=== PATIENT | female | born 1945 | race Hispanic/Latino ===

== ENCOUNTER 2021-08-18 19:38 | Observation (INO) | payer OTHER ==
[2021-08-18] MEDS ORDERED: cloNIDine HCL 0.1 MG TAB ONE (20:06)
[2021-08-18] MEDS ORDERED: LABETALOL 20 MG/4ML SYRINGE IV ONE (20:53)
--- NOTE | 2021-08-18 21:18 | RAD REPORT ---
EXAM DESCRIPTION: Laverne Single View08/18/2021 8:55 pm CLINICAL HISTORY: Chest pain COMPARISON: 2013 FINDINGS: The lungs appear clear of acute infiltrate. The heart is mildly enlarged IMPRESSION: No acute abnormalities displayed
[2021-08-18 21:41] LABS: Absolute Lymphocytes (CBC) 1.6 K/uL (0.7-4.9); Hematocrit 39.4 % (36.0-45.0); Lymphocytes % 20.7 % (15.3-44.8); MPV 7.5 fL (7.6-11.3); RBC Red Blood Cell Count 4.38 M/uL (3.86-4.86)
[2021-08-18 21:42] LABS: Protime INR 1.08
[2021-08-18 22:12] LABS: ALT/SGPT 18 U/L (12-78); AST/SGOT 17 U/L (15-37); Albumin 3.8 g/dL (3.4-5.0); Alkaline Phosphatase 104 U/L (45-117); BUN Blood Urea Nitrogen 13 mg/dL (7-18); Bicarbonate 25 mmol/L (21-32); Bilirubin Direct 0.1 mg/dL (0-0.2); Bilirubin Total 0.4 mg/dL (0.2-1.0); Glucose Level 117 mg/dL (74-106); Potassium 3.7 mmol/L (3.5-5.1); Protein, Total 8.6 g/dL (6.4-8.2); Sodium Level 139 mmol/L (136-145)
[2021-08-18 22:13] LABS: Magnesium 2.2 mg/dL (1.8-2.4); NT PRO-BNP 204 pg/mL (<450); Troponin (Emerg Dept Use Only) < 0.02 ng/mL (0.0-0.045)
--- NOTE | 2021-08-19 00:47 | ER ---
Nurse's Notes [facility] Name: Erin Marsh Age: 76 yrs Sex: Female : 1945 Arrival Date: 08/18/2021 Time: 19:44 Bed 5 Private MD: Diagnosis: Severe headache. Transient ischemic attack. Severe hypertension ( Non - complaint ) Presentation: 08/18 19:57 Chief complaint: Patient states: At about 1830 pt had a 'really bad' headache and took vg1 acetaminophen 160 mg and stated felt a little better. States was talking to a friend and the friend stated pt was stuttering and suggested to take another acetaminophen. pt states took another 160 mg of acetaminophen and the stuttering went away. Denies nausea or vomiting, denies chest pain, or blurred vision. Coronavirus screen: Vaccine status: Patient reports receiving the 2nd dose of the covid vaccine. Client denies travel out of the [place] in the last 14 days. Ebola Screen: Patient negative for fever greater than or equal to 101.5 degrees Fahrenheit, and additional compatible Ebola Virus Disease symptoms. Initial Sepsis Screen: Does the patient meet any 2 criteria? No. Patient's initial sepsis screen is negative. Does the patient have a suspected source of infection?. Risk Assessment: Do you want to hurt yourself or someone else? Patient reports no desire to harm self or others. Onset of symptoms was August 18, 2021. 19:57 Method Of Arrival: Ambulatory [facility] 19:57 Acuity: ESTHER 2 vg1 Triage Assessment: 20:02 Headache History: The patient has had previous headaches and this one is similar to vg1 previous episodes. General: Appears in no apparent distress. comfortable, Behavior is calm, cooperative. Pain: Denies pain. 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 Gait is steady, Speech is normal, Facial symmetry appears normal. 08/19 03:38 Pain: Also complains of no other associated symptoms. df1 Historical: - Allergies: 08/18 20:02 No Known Allergies; vg1 - Home Meds: 20:02 None [Active]; vg1 - PMHx: 20:02 Hypertensive disorder; vg1 - Immunization history:: Client reports receiving the 2nd dose of the Covid vaccine. - Social history:: Smoking status: Patient denies any tobacco usage or history of. Screenin:08 Abuse screen: Denies threats or abuse. Nutritional screening: No deficits noted. cc4 Tuberculosis screening: No symptoms or risk factors identified. Fall Risk None identified. Assessment: 20:08 Reassessment: Received VO from Melanie MILIAN to administer Clonidine 0.1 mg PO x1. vg1 20:30 General: Appears in no apparent distress. Behavior is calm, cooperative, States, "I cc4 feel better"; denies headache, vertigo or chest pain; states, "I stopped my blood pressure medications because I couldn't afford them.. Pain: Denies pain. Neuro: No deficits noted. Level of Consciousness is awake, alert, obeys commands, Oriented to person, place, time, situation. Cardiovascular: No deficits noted. Denies chest pain, lightheadedness, headache Heart tones S1 S2 Capillary refill < 3 seconds Rhythm is sinus rhythm. Respiratory: No deficits noted. Airway is patent Respiratory effort is even, unlabored, Respiratory pattern is regular, symmetrical. GI: No signs and/or symptoms were reported involving the gastrointestinal system. : No signs and/or symptoms were reported regarding the genitourinary system. EENT: No signs and/or symptoms were reported regarding the EENT system. Derm: No deficits noted. Skin is intact, is healthy with good turgor. Musculoskeletal: No deficits noted. Range of motion: intact in all extremities, Dr. England in \\T\\ bedside; # 20 g angiocath inserted left AC x 2 attempts with inability to draw labs; lab notified of needed collection. 20:30 General: Appears in no apparent distress. Hypertensive. cc4 20:50 Reassessment: Blood drawn per lab, madie. well. cc4 20:53 Reassessment: BP 219/84; Labetalol 10 mg given slow IVP; denies any complaints. cc4 21:00 Reassessment: BP decreasing to 162/71; Dr. England notified with additional labetalol with cc4 held; denies any complaints. Vital Signs: 19:57 BP 250 / 94; Pulse 73; Resp 18; Temp 97.0; Pulse Ox 99% ; Weight 81.65 kg; Height 5 ft. vg1 1 in. (154.94 cm); Pain 8/10; 20:30 BP 254 / 87; Pulse 69; Resp 20 S; Pulse Ox 99% on R/A; cc4 20:40 BP 239 / 74; Pulse 69; Resp 20 S; Pulse Ox 100% on R/A; cc4 20:53 BP 219 / 84; Pulse 67; Resp 20; Pulse Ox 99% on R/A; cc4 21:00 BP 162 / 71; Pulse 67; Resp 20 S; Pulse Ox 98% on R/A; cc4 21:15 BP 172 / 89; Pulse 68; Resp 20; Pulse Ox 97% on R/A; cc4 22:00 BP 140 / 66; Pulse 60; Resp 20 S; Pulse Ox 96% on R/A; cc4 23:15 BP 172 / 74; Pulse 60; Resp 20 S; Pulse Ox 98% on R/A; cc4 08/19 00:15 BP 153 / 70; Pulse 64; Resp 20; Pulse Ox 99% ; cc4 01:15 BP 169 / 69; Pulse 61; Resp 20 S; Pulse Ox 98% on R/A; cc4 02:15 BP 164 / 59; Pulse 57; Resp 20; Temp 97.8; Pulse Ox 97% ; cc4 02:46 BP 160 / 56; Pulse 57; Resp 20 S; Temp 97.8(O); Pulse Ox 98% on R/A; cc4 08/18 19:57 Body Mass Index 34.01 (81.65 kg, 154.94 cm) vg1 ED Course: 08/18 19:44 Patient arrived in ED. bp1 20:02 Triage completed. vg1 20:02 Arm band placed on. vg1 20:08 Patient has correct armband on for positive identification. Placed in gown. Bed in low cc4 position. Call light in reach. Side rails up X 1. pvc monitor on. Pulse ox on. NIBP on. 20:30 Odilon England MD is Attending Physician. pkl 20:52 Mariluz Ibrahim, NATASHA is Primary Nurse. bb 20:55 XRAY Chest (1 view) In Process Unspecified. EDMS 21:33 CT Neck Angio Sent. cc4 21:33 CT Head Angio Sent. cc4 21:33 Basic Metabolic Panel Sent. cc4 21:33 CBC with Diff Sent. cc4 21:33 LFT's Sent. cc4 21:33 Magnesium Sent. cc4 21:33 NT PRO-BNP Sent. cc4 21:33 PT-INR Sent. cc4 21:33 Troponin (emerg Dept Use Only) Sent. cc4 21:56 CT Head Brain wo Cont Sent. cc4 22:30 CT Head Brain wo Cont In Process Unspecified. EDMS 22:31 CT Head Angio In Process Unspecified. EDMS 22:31 CT Neck Angio In Process Unspecified. EDMS 08/19 00:09 COVID-19 SARS RT PCR (Document "Date of Onset" if Symptomatic) Sent. df1 00:44 Tadeo Simon is Hospitalizing Provider. pkl 03:37 No provider procedures requiring assistance completed. Patient admitted, IV remains in df1 place. Administered Medications: 08/18 20:08 Drug: cloNIDine 0.1 mg Route: PO; vg1 20:53 Drug: Labetalol 20 mg {Note: Labetalol 10 mg given IVP with decrease in BP to 162/71. cc4 Labetalol 10mg withheld..} Route: IVP; Infused Over: 2 mins; Site: left antecubital; Outcome: 12 00:46 Decision to Hospitalize by Provider. pkl 03:38 Admitted to Tele accompanied by tech. df1 03:38 Condition: stable 03:38 Instructed on the need for admit. 03:38 Patient left the ED. df1 Signatures: Dispatcher [employer] EDOdilon Orozco MD MD pkMariluz Tyson RN RN bb Garcia, Victoria, RN RN vg1 Pretty Borrero Christie, RN RN [email or web address] Toña Carrasquillo df1 Corrections: (The following items were deleted from the chart) 08/18 20:03 20:02 PMHx: Myocardial infarction; vg1 vg1 21:35 20:02 Neuro: Level of Consciousness is awake, alert, obeys commands, Oriented to vg1 person, place, time, situation, vg1
--- NOTE | 2021-08-19 00:48 | EDPHYS ---
Physician Documentation [facility] Name: Erin Marsh Age: 76 yrs Sex: Female : 1945 Arrival Date: 08/18/2021 Time: 19:44 Bed 5 Private MD: ED Physician Odilon England HPI: 08/18 22:30 This 76 yrs old Female presents to ER via Ambulatory with complaints of pkl Headache, Speech Difficulty, Chest Pain > 30 y/o. 22:30 The patient complains of pain to the top of head. The patient describes the headache as pkl pounding. Onset: The symptoms/episode began/occurred just prior to arrival, 1.5 hour(s) ago. Associated signs and symptoms: Pertinent positives: difficulty speech, stuttering. Patient took Tylenol 320 mg and headache and stuttering went away.. Historical: - Allergies: 20:02 No Known Allergies; vg1 - Home Meds: 20:02 None [Active]; vg1 - PMHx: 20:02 Hypertensive disorder; vg1 - Immunization history:: Client reports receiving the 2nd dose of the Covid vaccine. - Social history:: Smoking status: Patient denies any tobacco usage or history of. ROS: 22:30 Eyes: Negative for injury, pain, redness, and discharge, ENT: Negative for injury, pkl pain, and discharge, Neck: Negative for injury, pain, and swelling. 22:30 Cardiovascular: Positive for chest pain. 22:30 Respiratory: Negative for cough, shortness of breath. 22:30 Abdomen/GI: Negative for abdominal pain, nausea, vomiting, and diarrhea. 22:30 Back: Negative for acute changes. 22:30 : Negative for urinary symptoms. 22:30 MS/extremity: Negative for acute changes. 22:30 Skin: Negative for rash. 22:30 Neuro: Positive for headache, speech changes. Exam: 22:30 Head/Face: Normocephalic, atraumatic. Eyes: Pupils equal round and reactive to light, pkl extra-ocular motions intact. Lids and lashes normal. Conjunctiva and sclera are non-icteric and not injected. Cornea within normal limits. Periorbital areas with no swelling, redness, or edema. ENT: Nares patent. No nasal discharge, no septal abnormalities noted. Tympanic membranes are normal and external auditory canals are clear. Oropharynx with no redness, swelling, or masses, exudates, or evidence of obstruction, uvula midline. Mucous membranes moist. Neck: Trachea midline, no thyromegaly or masses palpated, and no cervical lymphadenopathy. Supple, full range of motion without nuchal rigidity, or vertebral point tenderness. No Meningismus. Chest/axilla: Normal chest wall appearance and motion. Nontender with no deformity. No lesions are appreciated. Cardiovascular: Regular rate and rhythm with a normal S1 and S2. No gallops, murmurs, or rubs. Normal PMI, no JVD. No pulse deficits. Respiratory: Lungs have equal breath sounds bilaterally, clear to auscultation and percussion. No rales, rhonchi or wheezes noted. No increased work of breathing, no retractions or nasal flaring. Abdomen/GI: Soft, non-tender, with normal bowel sounds. No distension or tympany. No guarding or rebound. No evidence of tenderness throughout. Back: No spinal tenderness. No costovertebral tenderness. Full range of motion. Skin: Warm, dry with normal turgor. Normal color with no rashes, no lesions, and no evidence of cellulitis. MS/ Extremity: Pulses equal, no cyanosis. Neurovascular intact. Full, normal range of motion. 22:30 Neuro: Orientation: is normal, Mentation: is normal, Memory: is normal, Cranial nerves: grossly normal, Cerebellar function: normal finger to nose testing, heel to sanders testing is normal, Motor: is normal, Sensation: is normal, Gait: is steady. Vital Signs: 19:57 BP 250 / 94; Pulse 73; Resp 18; Temp 97.0; Pulse Ox 99% ; Weight 81.65 kg; Height 5 ft. vg1 1 in. (154.94 cm); Pain 8/10; 20:30 BP 254 / 87; Pulse 69; Resp 20 S; Pulse Ox 99% on R/A; cc4 20:40 BP 239 / 74; Pulse 69; Resp 20 S; Pulse Ox 100% on R/A; cc4 20:53 BP 219 / 84; Pulse 67; Resp 20; Pulse Ox 99% on R/A; cc4 21:00 BP 162 / 71; Pulse 67; Resp 20 S; Pulse Ox 98% on R/A; cc4 21:15 BP 172 / 89; Pulse 68; Resp 20; Pulse Ox 97% on R/A; cc4 22:00 BP 140 / 66; Pulse 60; Resp 20 S; Pulse Ox 96% on R/A; cc4 23:15 BP 172 / 74; Pulse 60; Resp 20 S; Pulse Ox 98% on R/A; cc4 08/19 00:15 BP 153 / 70; Pulse 64; Resp 20; Pulse Ox 99% ; cc4 01:15 BP 169 / 69; Pulse 61; Resp 20 S; Pulse Ox 98% on R/A; cc4 02:15 BP 164 / 59; Pulse 57; Resp 20; Temp 97.8; Pulse Ox 97% ; cc4 02:46 BP 160 / 56; Pulse 57; Resp 20 S; Temp 97.8(O); Pulse Ox 98% on R/A; cc4 08/18 19:57 Body Mass Index 34.01 (81.65 kg, 154.94 cm) vg1 MDM: 08/18 20:30 Patient medically screened. pkl 22:55 Data reviewed: vital signs, nurses notes, lab test result(s), EKG, radiologic studies, pkl CT scan, plain films. 08/19 00:40 ED course: Talked to Dr. Pond, no thrombolytic, symptoms resolved. Will consult. pkl Talked to Ulises MILIAN ) For observation ( Dr. Simon ). 08/18 20:46 Order name: Basic Metabolic Panel; Complete Time: 22:18 pkl 08/18 20:46 Order name: CBC with Diff; Complete Time: 22:00 pkl 08/18 20:46 Order name: LFT's; Complete Time: 22:18 pkl 08/18 20:46 Order name: Magnesium; Complete Time: 22:18 pkl 08/18 20:46 Order name: NT PRO-BNP; Complete Time: 22:18 pkl 08/18 20:46 Order name: PT-INR; Complete Time: 21:45 pkl 08/18 20:46 Order name: Troponin (emerg Dept Use Only); Complete Time: 22:18 pkl 08/18 20:46 Order name: XRAY Chest (1 view); Complete Time: 21:41 pkl 08/18 20:46 Order name: CT Head Brain wo Cont pkl 08/18 20:46 Order name: CT Head Angio pkl 08/18 20:46 Order name: CT Neck Angio pkl 08/19 00:08 Order name: COVID-19 SARS RT PCR (Document "Date of Onset" if Symptomatic); Complete bb Time: 03:39 08/18 20:46 Order name: EKG; Complete Time: 20:47 pkl 08/18 20:46 Order name: Cardiac monitoring; Complete Time: 21:33 pkl 08/18 20:46 Order name: EKG - Nurse/Tech; Complete Time: 21:33 pkl 08/18 20:46 Order name: IV Saline Lock; Complete Time: 21:33 pkl 08/18 20:46 Order name: Labs collected and sent; Complete Time: 21:33 pkl 08/18 20:46 Order name: O2 Per Protocol; Complete Time: 21:33 pkl 08/18 20:46 Order name: O2 Sat Monitoring; Complete Time: 21:33 pkl 08/19 00:58 Order name: CONS Physician Consult; Complete Time: 03:12 EDMS Administered Medications: 08/18 20:08 Drug: cloNIDine 0.1 mg Route: PO; vg1 20:53 Drug: Labetalol 20 mg {Note: Labetalol 10 mg given IVP with decrease in BP to 162/71. cc4 Labetalol 10mg withheld..} Route: IVP; Infused Over: 2 mins; Site: left antecubital; Disposition Summary: 08/19/21 00:46 Hospitalization Ordered Hospitalization Status: Observation pkl Provider: Tadeo Simon Location: Telemetry/MedSurg (observation) pkl Condition: Stable pkl Problem: new pkl Symptoms: have improved pkl Bed/Room Type: Standard pkl Room Assignment: 228(08/19/21 01:47) eb1 Diagnosis - Severe headache. Transient ischemic attack. Severe hypertension ( Non - pkl complaint ) Forms: - Medication Reconciliation Form pkl - SBAR form pkl Signatures: Dispatcher [employer] EDMS Odilon England MD MD pkl Nuvia Rashid RN RN eb1 Bryanna Bartholomew RN RN vg1 Nicki Ospina RN RN cc4 Corrections: (The following items were deleted from the chart) 20:03 20:02 PMHx: Myocardial infarction; vg1 vg1 20:48 20:47 CREATININE, SERUM+C.LAB.BRZ ordered. EDMS EDMS 08/19 01:47 00:46 pkl eb1
[2021-08-19] MEDS ORDERED: ONDANSETRON 4 MG/2 ML VIAL IV PRN (02:36)
[2021-08-19] MEDS ORDERED: ACETAMINOPHEN 500 MG TAB PO PRN (02:36)
[2021-08-19] MEDS ORDERED: HYDRALAZINE HCL 20 MG/ML VIAL IV PRN (02:36)
--- NOTE | 2021-08-19 02:39 | P.HP ---
Certification for Inpatient Patient admitted to: Observation With expected LOS: <2 Midnights Patient will require the following post-hospital care: None Practitioner: I am a practitioner with admitting privileges, knowledge of patient current condition, hospital course, and medical plan of care. Services: Services provided to patient in accordance with Admission requirements found in Title 42 Section 412.3 of the Code of Federal Regulations Patient History Date of Service: 08/19/21 Primary Care Provider: [place] Reason for admission: hypertensive emergency History of Present Illness: Ms. Marsh is a 76 yo F with HTN and HLD who presents today for headache and slurred speech, tingling around her mouth lasting for a few minutes while she was cooking. She took tylenol and her headache resolved. She said her friend heard her voice and told her to go to the ED because she might be having a stroke. Upon arrival, BP was 250/94. Symptoms resolved after receiving labetalol, clonidine. Denies N/V, vision changes. She says she stopped taking her BP medications 6 months ago because they were $83/mo and she could not afford them after her recently as he was the primary breadwinner. She has just been set up with [employer] through Medicare and is able to afford her medications now. Her niece told the nurse that they recently relocated her to an apartment in [place] two weeks ago because she had been leaving the house to run errands and forgetting where she was, then a family member would have to find her and bring her home. She lives alone with her dog. CT Neck Angio Impression: no hemodynamically significant narrowing involving the carotid arteries bilaterally. 40% narrowing proximal right ICA. Marked calcified and noncalcified plaque bifurcation as well as proximal right internal and external carotid arteries. Tortuosity noted. Moderate calcified plaque proximal left ICA. CT Head Angio Impression: No CT eveidence for large vessel occlusion. origin right posterior cerebral artery. 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 CT Head WO Contrast: no acute intracranial abnormality identified Allergies No Known Allergies Allergy (Verified 10/30/13 16:28) Home Medications: Amlodipine [Norvasc*] 1 tab PO DAILY 10/30/13 Lisinopril/Hydrochlorothiazide [Zestoretic 20-12.5 Tablet] 1 tab PO BID 10/30/13 Clopidogrel Bisulfate [Plavix*] 75 mg PO DAILY #30 tablet 11/01/13 Simvastatin [Zocor*] 40 mg PO BEDTIME #30 tablet 11/01/13 - Past Medical/Surgical History Diabetic: No -: htn -: liver problems -: asthma -: bronchitis -: HLD Past Surgical History: Patient denies surgical history - Family History Brother -: Heart disease Notes: 4 of her brothers have had heart attacks - Social History Smoking Status: Never smoker Alcohol use: No CD- Drugs: No Caffeine use: No Place of Residence: Home Review of Systems 10-point ROS is otherwise unremarkable General: Unremarkable Eyes: Unremarkable ENT: Unremarkable Respiratory: Unremarkable Cardiovascular: Unremarkable Gastrointestinal: Unremarkable Genitourinary: Unremarkable Musculoskeletal: Unremarkable Integumentary: Unremarkable Neurological: Change in Speech, As per HPI Physical Examination - Physical Exam General: Alert, In no apparent distress HEENT: Atraumatic, PERRLA, Mucous membr. moist/pink, EOMI, Sclerae nonicteric Neck: Supple, 2+ carotid pulse no bruit, No LAD, Without JVD or thyroid abnorma lity Respiratory: Clear to auscultation bilaterally, Normal air movement Cardiovascular: Regular rate/rhythm, Normal S1 S2 Gastrointestinal: Normal bowel sounds, No tenderness Musculoskeletal: No tenderness Integumentary: No rashes Neurological: Normal speech, Normal strength at 5/5 x4 extr, Normal tone, Normal affect Lymphatics: No axilla or inguinal lymphadenopathy - Studies Laboratory Data (last 24 hrs) 08/18/21 20:59: PT 12.4, INR 1.08 08/18/21 20:59: WBC 7.60, Hgb 13.1, Hct 39.4, Plt Count 319 08/18/21 20:59: Sodium 139, Potassium 3.7, BUN 13, Creatinine 0.80, Glucose 117 H, Magnesium 2.2, Total Bilirubin 0.4, AST 17, ALT 18, Alkaline Phosphatase 104 Assessment and Plan - Problems (Diagnosis) (1) Hypertensive emergency Current Visit: Yes Status: Acute (2) HLD (hyperlipidemia) Current Visit: Yes Status: Chronic Qualifiers: Hyperlipidemia type: unspecified Qualified Code(s): E78.5 - Hyperlipidemia, unspecified - Plan neurology consulted MRI stroke protocol in the AM, ECHO in the AM daily ASA, folic acid, statin lipid and thyroid panel pending swallow study pending BP improving, hydralazine PRN for BP spikes reconcile and continue home medications social work consulted, patient may benefit from home health or assisted living, coordinate treatment plan with family DVT ppx Discharge Plan: Home Plan to discharge in: 24 Hours - Advance Directives Does patient have a Living Will: No Does patient have a Durable POA for Healthcare: No - Code Status/Comfort Care Code Status Assessed: Yes (full code ) Critical Care: No Time Spent Managing Pts Care (In Minutes): 70
[2021-08-19 03:30] VITALS: BMI 30.1
[2021-08-19 03:52] VITALS: O2SAT 99
[2021-08-19 05:14] LABS: Urine Appearance CLEAR (Clear); Urine Bilirubin NEGATIVE (Negative); Urine Blood NEGATIVE (Negative); Urine Color YELLOW (Yellow); Urine Glucose NEGATIVE (Negative); Urine Protein NEGATIVE (Negative); Urine Specific Gravity >=1.030 (1.005-1.030); Urine Urobilinogen 0.2 mg/dL (0.2-1.0); Urine pH 6.5 (5.0-7.0)
[2021-08-19 05:21] LABS: Urine Microscopic Reflex NO UMIC
[2021-08-19 05:52] LABS: Basophils % 0.4 % (0-1.3); Hematocrit 36.7 % (36.0-45.0); Lymphocytes % 30.1 % (15.3-44.8); MPV 7.5 fL (7.6-11.3); RBC Red Blood Cell Count 4.12 M/uL (3.86-4.86)
[2021-08-19 06:34] LABS: Albumin 3.4 g/dL (3.4-5.0); Bilirubin Total 0.4 mg/dL (0.2-1.0); Magnesium 2.3 mg/dL (1.8-2.4); Phosphorus 3.8 mg/dL (2.5-4.9); Potassium 3.6 mmol/L (3.5-5.1); Protein, Total 7.9 g/dL (6.4-8.2)
[2021-08-19 06:35] LABS: Thyroid Stimulating Hormone 11.5 uIU/mL (0.360-3.740)
--- NOTE | 2021-08-19 08:28 | RAD REPORT ---
EXAM DESCRIPTION: MRI - MRA Head Wo Cont - 08/19/2021 8:09 am CLINICAL HISTORY: Slurred speech, headache, extremity weakness COMPARISON: CT head August 18, CT angio head August 18 TECHNIQUE: Axial and coronal 3D [id number] image acquisition was performed. 3D rotational images were generated with source and reconstruction images reviewed. Horizontal and vertical axis rotation al views generated using MIP protocol. FINDINGS: From skullbase to the cavernous sinus the internal carotid arteries show no significant di sease. Mild narrowing of the each supraclinoid portion of the internal carotid arteries. Significant luminal narrowing seen at the distal aspect of the left anterior cerebral artery A1 segment. Remainde r the anterior cerebral artery circulation without significant finding. Left middle cerebral artery shows no large vessel occlusion, vasculitis or significant degree of athe rosclerotic luminal narrowing. Mild luminal narrowing changes are present in the M2 branches of the r ight middle cerebral artery. Persistent origin supply to the right posterior cerebral artery seen with a large posterior com municating artery. 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 There is significant atherosclerotic luminal narrowing but probably not complete occlusion. No basilar artery stenosis or suspicious finding. Distal right vertebral artery is normal. Nonvisuali zation of the distal left vertebral artery. Major venous sinuses are patent. IMPRESSION: Significant atherosclerotic changes are present with marked narrowing of the left curtain stretcher assembler ior cerebral artery. Mild luminal narrowing seen in the M2 branches of the right middle cerebral artery with more moderate atherosclerotic stenosis of the left anterior cerebral artery A1 segment. Nonvisualization of the distal left vertebral artery, further detailed on MRA neck examination.
--- NOTE | 2021-08-19 08:45 | RAD REPORT ---
EXAM DESCRIPTION: MRI - Brain W/Wo Cont - 08/19/2021 8:29 am CLINICAL HISTORY: slurred speech, headache, weakness COMPARISON: MRA Head Wo Cont dated 08/19/2021; Head angio dated 08/18/2021; Head Brain Wo Cont dated 1 10/19/2020 TECHNIQUE: Sagittal and axial T1-weighted images were obtained. Axial PD/heavily T2-weighted and T2- FLAIR images were obtained along with axial DWI/ADC mapping sequences. Coronal heavily T2 weighted s equence obtained. Axial and coronal post-contrast T1-weighted images were also obtained. A 16 ml Mul tihance contrast following utilized. FINDINGS: No intracranial hemorrhage, mass or acute infarction. No cortical edema or sulcal effacem ent. No significant atrophy changes noted. Ventricles are normal. No significant chronic ischemic madison nges. There is no edema or shift of midline structures. No extra-axial fluid collections. Michelle-matter /white matter junction is preserved. Signal voids are seen as a normal finding in the major intracra nial vessels. Post-contrast images show normal enhancement. No dural thickening. Mastoid air cells and paranasal sinuses are clear. IMPRESSION: No infarction changes are present. No hemorrhage, mass or other acute intracranial findi ng identifiable. Patient has no significant atrophy little if any identifiable chronic ischemic change. MRA findings show significant areas of vascular disease without corresponding chronic ischemic change in the brain parenchyma. This raises the possibility of non atherosclerotic etiology such as vasculi tis.
--- NOTE | 2021-08-19 08:52 | RAD REPORT ---
EXAM DESCRIPTION: MRI - MRA Neck W/Wo Cont - 08/19/2021 8:30 am CLINICAL HISTORY: Slurred speech, CVA, weakness, headache COMPARISON: CVA TECHNIQUE: MR angiography of the cervical vasculature performed. Coronal imaging plane acquisition u tilized. A 16 MultiHance contrast volume was utilized. Coronal reformatted images were generated and reviewed. Vertical axis 3D rotational projections obtained using maximum intensity projection protoco l. FINDINGS: Aortic arch is 3 vessel configuration with no origins stenosis. Right vertebral artery is dominant. Approximately 50% stenosis is seen at the vertebral artery origin on the right. The remainder of the right vertebral artery shows no significant finding. The left yang tebral artery is very small as a normal variant. Origin is too small to clearly visualize. An acute l eft vertebral artery process is not suspected. The very small size is believed to be normal anatomy r ather than long segment dissection. The distal left vertebral artery is absent or poorly visualized. This very small vessel likely terminates at the posteroinferior cerebellar artery. No significant common carotid artery disease. Atherosclerotic changes are present at the right bulb a nd proximal ICA with 30-40% stenosis of the proximal right internal carotid artery. Atherosclerotic c hanges in the left bulb and left internal carotid artery are mild and do not cause significant lumina l narrowing. IMPRESSION: Approximately 30- 40% stenosis of the proximal right internal carotid artery. Approximately 50% stenosis at the UA origin of the dominant right vertebral artery. Left vertebral ar rossy is very small is a normal anatomic variant.
[2021-08-19] MEDS ORDERED: carvediloL 6.25 MG TAB PO SCH (09:00)
[2021-08-19] MEDS ORDERED: lisinopriL 5 MG TAB PO SCH (09:00)
[2021-08-19] MEDS ORDERED: ENOXAPARIN 40 MG/0.4 ML SQ SCH (09:00)
[2021-08-19] MEDS ORDERED: ASPIRIN EC 81 MG TAB PO SCH (09:00)
[2021-08-19] MEDS: POTASSIUM CL SA 10 MEQ TAB PO ONE ×2 (09:00→09:05)
[2021-08-19] MEDS ORDERED: FOLIC ACID 1 MG TABLET PO SCH (09:00)
[2021-08-19] MEDS ORDERED: AMLODIPINE 10 MG TAB PO SCH (09:00)
[2021-08-19] MEDS ORDERED: POTASSIUM 25 MEQ EFFERV TAB PO ONE (09:45)
--- NOTE | 2021-08-19 10:12 | RAD REPORT ---
EXAM DESCRIPTION: CT - Head Brain Wo Cont - 08/19/2021 6:03 am CLINICAL HISTORY: HEADACHE. TECHNIQUE: Axial, coronal, and sagittal images through the brain were performed in the absence of in travenous contrast. This exam was performed according to our departmental dose-optimization program w hich includes use of Automated Exposure Control, adjustment of the mA and/or kV according to patient size and/or use of iterative reconstruction technique. COMPARISON: None. FINDINGS: The brain parenchyma appears unremarkable. There is no intra-axial or extra-axial bleed se en. There is no mass or mass effect. The ventricles are unremarkable. The orbital contents appear unr emarkable. The visualized paranasal sinuses and mastoid air cells are patent. No acute fracture is identified. IMPRESSION: No acute intracranial abnormality identified. Electronically signed by: Eli Hein MD 08/18/2021 11:07 PM COMPOSITION SIDING WORKER Due to temporary technical issues with the PACS/Fluency reporting system, reports are being signed by the in house radiologist without review as a courtesy to ensure prompt reporting. The interpreting r adiologist is fully responsible for the content of the report.
--- NOTE | 2021-08-19 10:13 | RAD REPORT ---
EXAM DESCRIPTION: CT - Head angio - 08/19/2021 6:02 am CLINICAL HISTORY: 76 years Female difficult speech;Headache COMPARISON: CT angiogram of the neck performed on the same day. TECHNIQUE: Images were obtained in axial, sagittal, and coronal planes. Intravenous contrast was adm inistered. This exam was performed according to our departmental dose-optimization program which includes use of Automated Exposure Control, adjustment of the mA and/or kV according to patient size and/or use o f iterative reconstruction technique. FINDINGS: Patent Carotid siphons bilaterally. Calcified plaque identified. Patent anterior and middle cerebral arteries bilaterally. Anterior communicating artery not well visu alized. Patent diminutive basilar artery. Patent right vertebral artery level of base of skull. No definite v isualization left vertebral artery at level of base of skull. Patent right posterior cerebral artery with origin of level of carotid siphon. Diminutive left posterior cerebral artery with origin at the level of distal basilar artery. No evidence for aneurysm, thrombus, or hemodynamically significant greater than 50% narrowing involvi ng the intracerebral vasculature. No asymmetric perfusion cerebral hemispheres bilaterally. No vascul ar malformation. IMPRESSION: No CT evidence for large vessel occlusion. origin right posterior cerebral artery. 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 Electronically signed by: Scarlet Smith MD 08/18/2021 11:45 PM FIRESTOPPER INSTALLER Due to temporary technical issues with the PACS/Fluency reporting system, reports are being signed by the in house radiologist without review as a courtesy to ensure prompt reporting. The interpreting r adiologist is fully responsible for the content of the report.
--- NOTE | 2021-08-19 10:16 | RAD REPORT ---
EXAM DESCRIPTION: CT - Neck Angio - 08/19/2021 6:02 am CLINICAL HISTORY: 76 years Female difficult speech COMPARISON: CT scan of the brain performed on the same day. TECHNIQUE: Images were obtained in axial, sagittal, and coronal planes. Intravenous contrast was adm inistered. 3-D MIP imaging was performed. The images were evaluated utilizing the NASCET criteria. This exam was performed according to our departmental dose-optimization program which includes use of Automated Exposure Control, adjustment of the mA and/or kV according to patient size and/or use o f iterative reconstruction technique. FINDINGS: Patent right common, internal, and external carotid arteries. Marked calcified and noncalc ified plaque bifurcation and proximal right internal as well as external carotid arteries. Marked tor tuosity right internal and external carotid arteries. 40% narrowing proximal right internal carotid a rtery approximately 1.3 cm from the bifurcation. No evidence for dissection. Moderate calcified plaque proximal left internal carotid artery. Patent left common, internal, and ex ternal carotid arteries. No hemodynamically significant (greater than 50% narrowing involving the lef t internal carotid artery. No dissection. Patent vertebral arteries bilaterally. Dominant right vertebral artery. Diminutive left vertebral art trista. Great vessels patent at their origins from the aortic arch. Patent subclavian arteries bilaterally. C hronic changes lung apices bilaterally. Moderate multilevel osteoarthritic change cervical spine with predominant involvement C5-6 and C6-7 l evels. IMPRESSION: No hemodynamically significant narrowing involving the carotid arteries bilaterally. 40% narrowing proximal right internal carotid artery. Marked calcified and noncalcified plaque bifurcation as well as proximal right internal and external carotid arteries. Tortuosity noted. Moderate calcified plaque proximal left internal carotid artery. Electronically signed by: Scarlet Smith MD 08/18/2021 11:34 PM FINAL CANOE INSPECTOR Due to temporary technical issues with the PACS/Fluency reporting system, reports are being signed by the in house radiologist without review as a courtesy to ensure prompt reporting. The interpreting r adiologist is fully responsible for the content of the report.
--- NOTE | 2021-08-19 12:04 | P.DS ---
Admission Date: 08/19/21 Discharge Date: 08/19/21 Primary Care Provider: [place] Disposition: ROUTINE DISCHARGE Discharge Condition: FAIR Reason for Admission: hypertensive emergency - Problems (1) Hypertensive emergency Status: Acute (2) HLD (hyperlipidemia) Status: Chronic Qualifiers: Hyperlipidemia type: unspecified Qualified Code(s): E78.5 - Hyperlipidemia, unspecified Brief History of Present Illness: Ms. Marsh is a 76 yo F with HTN and HLD who presents today for headache and slurred speech, tingling around her mouth lasting for a few minutes while she was cooking. She took tylenol and her headache resolved. She said her friend heard her voice and told her to go to the ED because she might be having a stroke. Upon arrival, BP was 250/94. Symptoms resolved after receiving labetalol, clonidine. Denies N/V, vision changes. She says she stopped taking her BP medications 6 months ago because they were $83/mo and she could not afford them after her recently as he was the primary breadwinner. She has just been set up with [employer] through Medicare and is able to afford her medications now. Her niece told the nurse that they recently relocated her to an apartment in [place] two weeks ago because she had been leaving the house to run errands and forgetting where she was, then a family member would have to find her and bring her home. She lives alone with her dog. CT Neck Angio Impression: no hemodynamically significant narrowing involving the carotid arteries bilaterally. 40% narrowing proximal right ICA. Marked calcified and noncalcified plaque bifurcation as well as proximal right internal and external carotid arteries. Tortuosity noted. Moderate calcified plaque proximal left ICA. CT Head Angio Impression: No CT eveidence for large vessel occlusion. origin right posterior cerebral artery. 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 CT Head WO Contrast: no acute intracranial abnormality identified Hospital Course: Patient placed under observation. Stroke work-up done with MRI of the brain, MRA of head and neck. MRI of the brain showed no acute stroke. MRA of the head and neck demonstrated o rigin of right posterior cerebral artery with large communication right, near complete absence of the left posterior cerebral with near complete occlusion suspected. Lipid profile elevated with LDL of 137. Patient started on aspirin, folic acid, Lipitor. Her neurologic symptoms were only transient. Her dysarthria resolved. She had no slurred speech during my examination today. No focal motor deficit, no problem with coordination with swallowing. Her systolic blood pressure has improved to the 160s. Case discussed with Dr. Pond still recommended transfer for neuro intervention. I spoke to neuro vascular team at [facility] who recommended no intervention at this time but rather medical management. Dr. Pond concurred. Patient is discharged with aspirin, Plavix, Lipitor and folic acid. She will see Dr. Pond in the office for follow-up. Vital Signs/Physical Exam: Temp Pulse Resp BP Pulse Ox 97.7 F 71 16 166/79 H 99 08/19/21 08:00 08/19/21 08:00 08/19/21 08:00 08/19/21 08:00 08/19/21 08:00 General: Alert, In no apparent distress, Oriented x3 HEENT: Mucous membr. moist/pink Neck: JVD not distended Respiratory: Clear to auscultation bilaterally, Normal air movement Cardiovascular: No edema, Regular rate/rhythm, Normal S1 S2 Gastrointestinal: Soft and benign, Non-distended, No tenderness Musculoskeletal: No swelling Integumentary: No rashes Neurological: Normal strength at 5/5 x4 extr Laboratory Data at Discharge: WBC 6.60 K/uL (4.3-10.9) 08/19/21 05:20 Hgb 12.7 g/dL (12.0-15.0) 08/19/21 05:20 Hct 36.7 % (36.0-45.0) 08/19/21 05:20 Plt Count 274 K/uL (152-406) 08/19/21 05:20 PT 12.4 SECONDS (9.5-12.5) 08/18/21 20:59 INR 1.08 08/18/21 20:59 Sodium 140 mmol/L (136-145) 08/19/21 05:20 Potassium 3.6 mmol/L (3.5-5.1) 08/19/21 05:20 BUN 13 mg/dL (7-18) 08/19/21 05:20 Creatinine 0.81 mg/dL (0.55-1.3) 08/19/21 05:20 Glucose 103 mg/dL (74-106) 08/19/21 05:20 Phosphorus 3.8 mg/dL (2.5-4.9) 08/19/21 05:20 Magnesium 2.3 mg/dL (1.8-2.4) 08/19/21 05:20 Total Bilirubin 0.4 mg/dL (0.2-1.0) 08/19/21 05:20 AST 15 U/L (15-37) 08/19/21 05:20 ALT 15 U/L (12-78) 08/19/21 05:20 Alkaline Phosphatase 93 U/L (45-117) 08/19/21 05:20 Triglycerides 227 mg/dL (<150) H 08/19/21 05:20 Cholesterol 229 mg/dL (<200) H 08/19/21 05:20 HDL Cholesterol 47 mg/dL (40-60) 08/19/21 05:20 Cholesterol/HDL Ratio 4.87 08/19/21 05:20 Home Medications: Lisinopril/Hydrochlorothiazide [Zestoretic 20-12.5 Tablet] 1 tab PO DAILY 10/30/13 Amlodipine [Norvasc*] 10 mg PO DAILY #30 tab 08/19/21 Aspirin [Aspirin EC] 81 mg PO DAILY #30 tablet. 08/19/21 Atorvastatin Calcium [Lipitor] 80 mg PO BEDTIME #30 tab 08/19/21 Clopidogrel Bisulfate [Plavix] 75 mg PO DAILY #30 tablet 08/19/21 Folic Acid 1 mg PO DAILY #30 tablet 08/19/21 New Medications: Aspirin [Aspirin EC] 81 mg PO DAILY #30 tablet. Folic Acid 1 mg PO DAILY #30 tablet Atorvastatin Calcium [Lipitor] 80 mg PO BEDTIME #30 tab Amlodipine [Norvasc*] 10 mg PO DAILY #30 tab Clopidogrel Bisulfate [Plavix] 75 mg PO DAILY #30 tablet Diet: AHA Activity: Ad urvashi Followup: Panda Pond MD [ASSOCIATE-ACTIVE - CAN ADMIT] - 1-2 Weeks (Call to schedule appointment) Vladislav Shaw MD [Primary Care Provider] - 1-2 Weeks (Call to schedule appointment )
--- NOTE | 2021-08-19 14:42 | ECHO ---
HEIGHT: 5 ft 1 in WEIGHT: 159 lb 5 oz DATE OF STUDY: 08/19/[address]: Ulises Almodovar 2-DIMENSIONAL: YES M.MODE: YES DOPPLER: YES COLOR FLOW: YES TDS: PORTABLE: DEFINITY: BUBBLE STUDY: DIAGNOSIS: CHEST PAIN CARDIAC HISTORY: CATHERIZATION: YES SURGERY: NO PROSTHETIC VALVE: NO PACEMAKER: NO MEASUREMENTS (cm) DIASTOLIC (NORMALS) SYSTOLIC (NORMALS) IVSd 1.3 (0.6-1.2) LA Diam 3.3 (1.9-4.0) LVEF 60-65% LVIDd 4.8 (3.5-5.7) LVIDs 2.7 (2.0-3.5) %FS 44% LVPWd 1.3 (0.6-1.2) Ao Diam 2.5 (2.0-3.7) 2 DIMENSIONAL ASSESSMENT: RIGHT ATRIUM: NORMAL LEFT ATRIUM: NORMAL RIGHT VENTRICLE: NORMAL LEFT VENTRICLE: NORMAL TRICUSPID VALVE: NORMAL MITRAL VALVE: NORMAL PULMONIC VALVE: NORMAL AORTIC VALVE: NORMAL PERICARDIAL EFFUSION: NONE AORTIC ROOT: NORMAL LEFT VENTRICULAR WALL MOTION: NORMAL DOPPLER/COLOR FLOW: NORMAL COMMENTS: NORMAL LEFT VENTRICULAR EJECTION FRACTION 60-65%. MILD LEFT VENTRICULAR HYPERTROPHY, CONCENTRIC. MILD DIASTOLIC DYSFUNCTION. TECHNOLOGIST: LILIBETH FLORIAN
[2021-08-19 17:32] VITALS: BP 165/82; TEMP 97.4
[2021-08-19] MEDS ORDERED: ATORVASTATIN 40 MG TAB PO SCH (21:00)
--- NOTE | 2021-08-20 18:27 | CON ---
Date of Consultation: 08/19/2021 History Of Present Illness: Ms. Marsh is a 76-year-old patient with hypertension and dysl ipidemia who comes to [facility] with headaches, slurred speech and tingling around her mout h that lasted a few minutes and this was while she was at home cooking. She took Tylenol and after 2 doses, symptoms seemed to improve. However, her friend insisted and she did come to the [facility] to rule out stroke. At [facility], her systolic blood pressure was 250 and diastol ic 94 and she did have return of her symptoms, and she was treated with beta araceli and clonidine an d her symptoms improved. On additional questioning, patient admitted she stopped her blood pressure medication 6 months ago because of high cost after . She has had brain imaging in cluding CT angiogram of her head that showed approximately 34% stenosis of the proximal right interna l carotid and 50% stenosis of the dominant right vertebral artery and the left vertebral artery is fo und to be anatomically very small likely anatomical variant. The radiologist did make note that ther e was apparently no significant evidence of small-vessel ischemic disease throughout the brain, and t he findings on the brain MRA, which did show significant areas of vascular disease as far as MRA goes but no corresponding chronic ischemic change in the brain parenchyma, did raise possibility of nonar throsclerotic causes for vascular disease such as vasculitis. Again, no brain infarctions were ident ified in the brain, brainstem or in the periventricular or subcortical regions. Her deficits had sig nificantly resolved at the time of my evaluation. Her blood pressures while in hospital were gingerl y decreased and she had by discharge blood pressures in the 150s to 160s systolic/60s to 80s diastoli c. She did restart antihypertensive medications Norvasc 10 mg daily along with Coreg 6.25 mg twice d aily and Prinivil 5 mg daily. She was on DVT prophylaxis. She did receive aspirin 81 mg daily while in hospital. She was not on aspirin prior to her admission. Past Medical History: Asthma, chronic liver disease, bronchitis, dyslipidemia, and hypertension. Allergies: NO KNOWN DRUG ALLERGIES. Medications: At home, Norvasc daily, twice daily, Plavix 75 mg daily, Zocor 40 mg at bedt svitlana. Family History: Positive for heart disease in 4 of her brothers and parents. Social History: Denies alcohol, tobacco, or IV drug use. Review of Systems: Aside from mentioned above with the difficulty with her speech, she denies any recent fevers, chills, nausea, vomiting, myalgias, arthralgias, headache, weight change, rash. No psychiatric history. No gastrointestinal or genitourinary issues. Physical Examination: Vital Signs: Blood pressure 165/82, pulse 75, respiratory rate 16, temperature 97.4, oxygen saturati on 99% on room air. General: Ms. Marsh is standing beside the bed. No acute distress. HEENT: She is normocephalic, atraumatic. Sclerae anicteric. Oropharynx pink and moist. Neck: Supple. Chest: Clear. Heart: Regular. Extremities: Show no edema, cyanosis, or clubbing. Neurological: She is alert and oriented to person, place, time, and situation. She has no expressiv e or receptive aphasia. She has no cranial nerve deficits. No focal motor, sensory, coordination, o r gait deficits. Laboratory Studies: Complete blood count differential is unremarkable. Coagulation panel shows INR of 1.08. Basic metabolic panel remarkable for elevated chloride of 108. Otherwise, magnesium, calci um, normal. Liver function studies are normal. Her triglycerides are elevated to 406, total cholest timothy 239, LDL cholesterol 140, HDL cholesterol 36. Thyroid-stimulating hormone very elevated to 11.5 , free T4 very low at 0.75. Urinalysis negative. COVID-19 test is negative. Assessment: Ms. Marsh is a 76-year-old patient with likely hypothyroidism as a contributing factor to her symptoms. She does have the possibility of vascular disease in the central nervous system wi thout corresponding ischemic changes on brain parenchyma worrisome for vasculitis. She has hypertens toney emergency which has improved and she is now asymptomatic from that. She has dyslipidemia with el evated cholesterol. Plan: 1.Aggressive management of hypertension, dyslipidemia, and hypothyroidism. 2.Aspirin along with Plavix, folic acid, statin, and blood pressure medications as indicated. 3.She may require 4-vessel angiogram and workup to help rule out a central nervous system vasculitis in [place]. 4.After discharge, she should follow up in Dr. Pond's clinic 1 month later. LB/IVETTE Voice ID: [id number] Report ID: [id number]
== END 2021-08-19 17:21 | disposition home or self-care (01) ==
LOC: ER 19:38 → ERHOLD 08-19 01:10 → 2ND 08-19 02:31
PROVIDERS: ADMIT Internal Medicine; ATTEND Internal Medicine
DX: I16.1 Hypertensive emergency (principal); E78.5 Hyperlipidemia, unspecified; R51.9 Headache, unspecified; R47.81 Slurred speech; E78.00 Pure hypercholesterolemia, unspecified; J45.909 Unspecified asthma, uncomplicated; Z20.822 Contact with and (suspected) exposure to COVID-19
CPT/HCPCS: 93005; 93306; 85025 ×2; 80048; 36415; 83735 ×2; 84100; 85610; 80061; 80076; 84443; 81003; 84484; 84439; 80053; 83880; 70450; 70496; 70498; 71045; 70553; 70544; 70549; 96374; 99285; U0003; Q9967; A9577; J0360; J1650; G0378 ×2

== ENCOUNTER 2022-02-03 07:34 | Emergency (ER) | payer OTHER ==
--- OUTSIDE RECORDS SUMMARY | 2022-02-03 07:36 | XMS REPORT | Continuity of Care Document ---
:1945 Author Organization [facility] t Address [address] [place] [address] Care Team Providers Name Role Phone YOVANI SHAW Primary Care Physician Unavailable Yovani Shaw MD Attending Clinician YOVANI SHAW Attending Clinician Unavailable Payers Payer Name Policy Type Policy Number Effective Date Expiration Date S ource Problems Condition Condition Condition Status Onset Resolution Last Treating Co mments Source Name Details Category Date Date Treatment Clinician Date Onychomyco Onychomyco Disease Active U nivers sis sis 7- ity of 00:00: [address] Bruit of Bruit of Disease Active Unive rs left left 7 ity of carotid carotid 00:00: [place] artery artery [address] [place] [address] Hyperlipid Hyperlipid Disease Active U nivers emia emia 2-26 ity of 00:00: [address] Essential Essential Disease Active Uni vers hypertensi hypertensi 2-26 it y of on on 00:00: [address] Hypothyroi Hypothyroi Disease Active U nivers dism dism 2-26 ity of 00:00: [address] Allergies, Adverse Reactions, Alerts Allergy Allergy Status Severity Reaction(s) Onset Inactive Treating Comm ents Source Name Type Date Date Clinician NO KNOWN Drug Active Univers ALLERGIE Class ity of S [facility] Social History Social Habit Start Date Stop Date Quantity Comments Source Exposure to 2022-01-21 2022-01-31 Not sure [facility] SARS-CoV-2 00:00:00 10:35:00 [facility] (event) [facility] Alcohol intake 2019-03-25 2019-03-25 Current University 00:00:00 00:00:00 non-drinker of [facility] alcohol Branch (finding) Tobacco use and 2015-11-13 2015-11-13 Never used Universit y of exposure 00:00:00 00:00:00 [facility] Sex Ass[birth year] Universit y of 00:00:00 00:00:00 [facility] Smoking Status Start Date Stop Date Source Never smoker [facility] Medications Ordered Filled Start Stop Current Ordering Indication Dosage Frequency Signature Comments Components Source Medication Medication Date Date Medication? Clinician (SIG) Name Name cefUROXime Yes [id number] 250mg Take 1 Univers 250 mg 5-16 tablet by ity of tablet 00:00: mouth 2 00 (two) Medical times Branch daily. aspirin 81 0 Yes 81mg Take 81 mg U nivers mg chewable 1-24 by mouth ity of tablet 13:52: daily. [place] [facility] Branch foLIC acid 0 Yes 1mg Take 1 mg Un taryn 1 mg tablet 1-24 by mouth ity of 13:51: daily. [place] 07 Medical Branch atorvastati 0 Yes [id number] 10mg Take 1 Univers n 10 mg 1-24 tablet by ity of tablet 00:00: mouth at [place] 00 bedtime. Medical Branch lisinopriL- Yes [id number] TAKE 2 Univers hydrochloro 1-24 TABLETS BY it y of thiazide 00:00: MOUTH ONCE Richy as 20-12.5 mg 00 DAILY Medical per tablet Branch clopidogreL 0 Yes [id number] 75mg Take 1 Univers 75 mg 1-24 tablet by ity of tablet 00:00: mouth [place] 00 daily. Medical Branch amLODIPine 0 Yes [id number] 10mg Take 1 U nivers 10 mg 1-24 tablet by ity of tablet 00:00: mouth [place] 00 daily. Medical Branch Immunizations Ordered Filled Immunization Date Status Comments [facility] e Immunization Name Name SARS-COV-2 COVID-19 2020-11-18 Completed Unive rsity of PFIZER VACCINE 00:00:00 [facility] SARS-COV-2 COVID-19 2020-10-30 Completed Unive rsity of PFIZER VACCINE 00:00:00 [facility] Vital Signs Vital Name Observation Time Observation Value Comments Source Systolic blood 2022-01-31 15:48:00 168 mm[Hg] Univer sity [facility] Diastolic blood 2022-01-31 15:48:00 69 mm[Hg] [facility] 2022-01-31 15:47:00 85 /min [facility] Body temperature 2022-01-31 15:47:00 [facility].83 [facility] height 2022-01-31 15:47:00 154.9 cm [facility] Body weight 2022-01-31 15:47:00 74.844 kg [facility] BMI 2022-01-31 15:47:00 31.18 kg/m2 [facility] Procedures Procedure Date / Time Performed Performing Clinician Sourc e POCT URINALYSIS 2022-01-31 00:00:00 Vic Shaw [facility] Encounters Start End Encounter Admission Attending Care Care Encounter Source Date/Time Date/Time Type Type Clinicians Facility Department ID 2022-01-31 2022-01-31 Office Colin [facility] [id number] Univers 10:30:00 10:53:49 Visit [facility] [id number] it y of Yovani MACK [id number] Richy as JACQUELYN?BLEA [id number] [address] MEDICAL OFFICE BUILDING 2022-01-31 2022-01-31 Outpatient R [facility] [id number] Univers 10:30:00 10:53:49 VIC garber [facility] Results Test Description Test Time Test Comments Results Result Comments Source POCT URINALYSIS W SPECIFIC GRAVITY 2022-01-31 16:03:00 Test Item Value Reference Range Interpretation Comme nts POCT U SP GRAV (test code = 3255) 1.020 mg/dl 1.005-1.025 POCT PH U (test code = 3254) 6 mg/dl 5-8 POCT U LEUK EST (test code = 3263) + Negative - Negative POCT U NIT (test code = 3262) Pos Negative - Negative POCT U PROT (test code = 3259) Negative - Negative POCT U GLU (test code = 3256) normal Negative - Negative POCT U KETONE (test code = 3258) neg Negative - Negative POCT U UROBILI (test code = 3260) normal 0.2-1 POCT U BILI (test code = 3261) neg Negative - Negative POCT U BLD (test code = 3257) Negative - Negative POCT U COLOR (test code = 3266) dark POCT U APPEAR (test code = 3267) [facility]
[2022-02-03] MEDS ORDERED: KETOROLAC 30 MG/ML INJ ONE (09:16)
--- NOTE | 2022-02-03 09:27 | RAD REPORT ---
EXAM DESCRIPTION: Shoulder Right 2 View - 02/03/2022 8:47 am CLINICAL HISTORY: PAIN COMPARISON: No comparisonsafter fall TECHNIQUE: Internal and external rotation views of the right shoulder were obtained. FINDINGS: Transverse fracture of the surgical neck is present. The shaft is displaced medially appro ximately 1/2 shaft width. Fracture extends into the greater tuberosity without significant displaceme nt. No dislocation of the humeral head. AC joint degenerative changes are present without acute find ing. Acromial humeral joint space is maintained. No abnormal soft tissue calcifications. IMPRESSION: Right proximal humerus displaced surgical neck fracture with extension into the greater tuberosity.
--- NOTE | 2022-02-03 09:48 | ER ---
Nurse's Notes [facility] Name: Erin Marsh Age: 76 yrs Sex: Female : 1945 Arrival Date: 02/03/2022 Time: 07:35 Bed 18 Private MD: Diagnosis: 2-part displaced fracture of surgical neck of right humerus, initial encounter for closed fracture Presentation: 02/03 08:01 Chief complaint: Patient states: slipped down three stairs on right shoulder , did not iw hit head. 08:01 Method Of Arrival: Ambulatory iw 08:01 Coronavirus screen: At this time, the client does not indicate any symptoms associated iw with coronavirus-19. Ebola Screen: Patient negative for fever greater than or equal to 101.5 degrees Fahrenheit, and additional compatible Ebola Virus Disease symptoms Patient denies exposure to infectious person. Patient denies travel to an Ebola-affected area in the 21 days before illness onset. No symptoms or risks identified at this time. Initial Sepsis Screen: Does the patient meet any 2 criteria? No. Patient's initial sepsis screen is negative. Does the patient have a suspected source of infection? No. Patient's initial sepsis screen is negative. Risk Assessment: Do you want to hurt yourself or someone else? Patient reports no desire to harm self or others. Onset of symptoms was February 03, 2022. 08:01 Acuity: ESTHER 4 iw Triage Assessment: 09:36 General: Appears uncomfortable. Injury Description: fall from standing. ap3 Historical: - Allergies: 08:02 Vicodin; vomiting; iw - PMHx: 08:02 Hypertensive disorder; CVA; iw - Immunization history:: Adult Immunizations up to date. - Social history:: Smoking status: Patient denies any tobacco usage or history of. Screenin:36 Abuse screen: Denies threats or abuse. Nutritional screening: No deficits noted. ap3 Tuberculosis screening: No symptoms or risk factors identified. Fall Risk Fall in past 12 months (25 points). Secondary diagnosis (15 points) No IV (0 pts). Ambulatory Aid- None/Bed Rest/Nurse Assist (0 pts). Gait- Normal/Bed Rest/Wheelchair (0 pts) Mental Status- Oriented to own ability (0 pts). Total Mace Fall Scale indicates Low Risk Score (25-44 pts). Fall prevention measures have been instituted. Side Rails Up X 2 Placed close to Nursing Station Frequent Obs/Assesments occuring Family Present and informed to notify staff if they need to leave bedside. Assessment: 09:35 General: Appears uncomfortable, Behavior is calm, cooperative. Pain: Complains of pain ap3 in right shoulder Pain began suddenly. Neuro: Level of Consciousness is awake, alert, obeys commands, Oriented to person, place, time, situation, Speech is normal. Cardiovascular: Patient's skin is warm and dry. Respiratory: Airway is patent Respiratory effort is even, unlabored. Musculoskeletal: Reports pain in right shoulder. Vital Signs: 08:01 BP 163 / 80; Pulse 72; Resp 16; Temp 97.8; Pulse Ox 100% on R/A; iw ED Course: 07:35 Patient arrived in ED. as 07:57 [facility] 07:57 Vince Bain MD is Attending Physician. jh7 08:02 Triage completed. iw 08:02 Arm band placed on. iw 08:49 XRAY Shoulder RIGHT 2 view In Process Unspecified. EDMS 09:07 Annamarie Page, RN is Primary Nurse. ap3 09:36 Patient has correct armband on for positive identification. Bed in low position. Call ap3 light in reach. Side rails up X 1. Adult w/ patient. Pulse ox on. NIBP on. Door closed. Noise minimized. 09:45 Yinka Camara MD is Referral Physician. jh7 10:08 No provider procedures requiring assistance completed. Patient did not have IV access ap3 during this emergency room visit. Administered Medications: 09:23 Drug: Ketorolac 30 mg Route: IM; Site: left gluteus; ap3 09:43 Follow up: Response: No adverse reaction ap3 10:04 Drug: traMADol 50 mg Route: PO; ap3 10:09 Follow up: Response: No adverse reaction ap3 Medication: 09:37 VIS not applicable for this client. ap3 Outcome: 09:48 Discharge ordered by . jh7 10:08 Discharged to home ambulatory, with family. ap3 10:08 Condition: good 10:08 Discharge instructions given to patient, family, Instructed on discharge instructions, follow up and referral plans. medication usage, Demonstrated understanding of instructions, follow-up care, medications, Prescriptions given X 3. 10:10 Patient left the ED. ap3 Signatures: Dispatcher [employer] Lima Iyer Irene, RN RN iw Annamarie Page RN RN ap3 Brandie Santana, STROBOROMA OPERATOR STROBOROMA OPERATOR jh7
--- NOTE | 2022-02-03 09:49 | EDPHYS ---
Physician Documentation [facility] Name: Erin Mrash Age: 76 yrs Sex: Female : 1945 Arrival Date: 02/03/2022 Time: 07:35 Bed 18 Private MD: ED Physician Vince Bain HPI: 02/03 08:06 This 76 yrs old Female presents to ER via Ambulatory with complaints of jh7 Shoulder Injury. 08:06 The patient or guardian complains of contusion, pain, that is acute. jh7 08:08 right shoulder. Context: resulted from a fall, while walking, The patient experiences jh7 decreased range of motion, when rotates arm. Onset: The symptoms/episode began/occurred today. Associated signs and symptoms: Pertinent positives: Numbness in right hand Pertinent negatives: abdominal pain, chest pain, dyspnea, neck pain, shortness of breath. Patient states that she slipped down 3 steps due to her shoes. Denies LOC or head injury. States that she landed forward on her right shoulder, and now has decreased range of motion.. Historical: - Allergies: 08:02 Vicodin; vomiting; iw - PMHx: 08:02 Hypertensive disorder; CVA; iw - Immunization history:: Adult Immunizations up to date. - Social history:: Smoking status: Patient denies any tobacco usage or history of. ROS: 08:08 Constitutional: Negative for fever, chills, and weight loss, ENT: Negative for injury, jh7 pain, and discharge, Neck: Negative for injury, pain, and swelling, Cardiovascular: Negative for chest pain, palpitations, and edema, Respiratory: Negative for shortness of breath, cough, wheezing, and pleuritic chest pain, Abdomen/GI: Negative for abdominal pain, nausea, vomiting, diarrhea, and constipation, Back: Negative for injury and pain, Skin: Negative for injury, rash, and discoloration. 08:08 MS/extremity: Positive for injury or acute deformity, decreased range of motion, pain, Negative for deformity, erythema, laceration. 08:08 All other systems are negative. Exam: 08:08 Constitutional: This is a well developed, well nourished patient who is awake, alert, jh7 and in no acute distress. Neck: Trachea midline, no thyromegaly or masses palpated, and no cervical lymphadenopathy. Supple, full range of motion without nuchal rigidity, or vertebral point tenderness. No Meningismus. Chest/axilla: Normal chest wall appearance and motion. Nontender with no deformity. No lesions are appreciated. Cardiovascular: Regular rate and rhythm with a normal S1 and S2. No gallops, murmurs, or rubs. Normal PMI, no JVD. No pulse deficits. Respiratory: Lungs have equal breath sounds bilaterally, clear to auscultation and percussion. No rales, rhonchi or wheezes noted. No increased work of breathing, no retractions or nasal flaring. Back: No spinal tenderness. No costovertebral tenderness. Full range of motion. Skin: Warm, dry with normal turgor. Normal color with no rashes, no lesions, and no evidence of cellulitis. Neuro: Awake and alert, GCS 15, oriented to person, place, time, and situation. Sensory grossly intact. Normal gait. 08:08 Musculoskeletal/extremity: ROM: RUE: Decreased ROM abduction, internal/external rotation secondary to significant pain, Circulation is intact in all extremities. Sensation intact. No TTP over any part of the R shoulder. Vital Signs: 08:01 BP 163 / 80; Pulse 72; Resp 16; Temp 97.8; Pulse Ox 100% on R/A; iw MDM: 08:04 Patient medically screened. [facility] 09:56 Differential diagnosis: humeral head fracture. Data reviewed: vital signs, nurses [facility] notes, radiologic studies, plain films. Data interpreted: Pulse oximetry: is 100 %. Interpretation: normal. Test interpretation: by ED physician or midlevel provider: plain radiologic studies. Counseling: I had a detailed discussion with the patient and/or guardian regarding: the historical points, exam findings, and any diagnostic results supporting the discharge/admit diagnosis, the need for outpatient follow up, a orthopedic surgeon, to return to the emergency department if symptoms worsen or persist or if there are any questions or concerns that arise at home. Response to treatment: the patient's symptoms have mildly improved after treatment. ED course: The patient remained stable throughout the ER visit. There were no signs of axillary nerve injury or neurovascular compromise. The slight numbness in her fingers resolved after pain meds were administered. Her pain mildly improved after medication administration. The patient has a right proximal humerus displaced surgical neck fracture that extends into the greater tuberosity. The patient was placed in a shoulder immobilizer, and advised to follow-up with Ortho within 1 to 2 days. If she experiences numbness/tingling or severe pain, she should return to the ER for further eval. The patient understood the plan of care.. 02/03 08:05 Order name: XRAY Shoulder RIGHT 2 view; Complete Time: 09:36 [facility] 02/03 09:36 Order name: Shoulder Immobilizer; Complete Time: 09:43 jh7 Administered Medications: 09:23 Drug: Ketorolac 30 mg Route: IM; Site: left gluteus; ap3 09:43 Follow up: Response: No adverse reaction ap3 10:04 Drug: traMADol 50 mg Route: PO; ap3 10:09 Follow up: Response: No adverse reaction ap3 Disposition Summary: 02/03/22 09:48 Discharge Ordered Location: Home [facility] Problem: new [facility] Symptoms: have improved [facility] Condition: Stable [facility] Diagnosis - 2-part displaced fracture of surgical neck of right humerus, initial encounter for [facility] closed fracture Followup: [facility] - With: Yinka Camara MD - When: 1 - 2 days - Reason: Further diagnostic work-up, Recheck today's complaints Discharge Instructions: - Discharge Summary Sheet [facility] - Humerus Fracture Treated With Immobilization [facility] - How to Use a Shoulder Immobilizer [facility] - Shoulder Pain [facility] Forms: - Medication Reconciliation Form [facility] - Thank You Letter [facility] - Prescription Opioid Use [facility] Prescriptions: - Anaprox DS 550 mg Oral Tablet - take 1 tablet by ORAL route every 12 hours As needed; 20 tablet; Refills: 0, [facility] Product Selection Permitted - Zanaflex 4 mg Oral Tablet - take 1 tablet by ORAL route every 8 hours As needed; 20 tablet; Refills: 0, [facility] Product Selection Permitted - Tramadol 50 mg Oral Tablet - take 1 tablet by ORAL route every 8 hours as needed; 12 tablet; Refills: 0, [facility] Product Selection Permitted Signatures: Dispatcher [employer] Xiao Adair RN RN iw Prokisch, Amanda, RN RN ap3 Brandie Santana, STEM FRAZER STEM FRAZER [facility]
[2022-02-03] MEDS ORDERED: TRAMADOL HCL 50 MG TAB ONE (09:59)
[2022-02-03 10:16] VITALS: BP 163/80; TEMP 97.8; O2SAT 100
== END 2022-02-03 10:10 | disposition home or self-care (01) ==
LOC: ER 07:34
DX: S42.221A 2-part displaced fracture of surgical neck of right humerus, initial encounter for closed fracture (principal); W10.9XXA Fall (on) (from) unspecified stairs and steps, initial encounter; Y93.01 Activity, walking, marching and hiking; I10 Essential (primary) hypertension; Z86.73 Personal history of transient ischemic attack (TIA), and cerebral infarction without residual deficits; Z88.5 Allergy status to narcotic agent
CPT/HCPCS: 96372; 99284

== ENCOUNTER 2023-08-12 10:04 | Emergency (ER) | payer OTHER ==
--- OUTSIDE RECORDS SUMMARY | 2023-08-12 10:09 | XMS REPORT | Continuity of Care Document ---
:1945 Author Organization [facility] t Address [address] [facility] [address] [place] [address] Care Team Providers Name Role Phone VIC MEYER Primary Care Physician Unavailable VIC MEYER Attending Clinician Unavailable SHONNA BEAVERS Attending Clinician Unavailable LORETA AMAYA Attending Clinician Unavailable Loreta Amaya MD Attending Clinician Unknown, Attending Attending Clinician Unavailable YENIFER RIVERA Attending Clinician Unavailable Yenifer Rivera DO Attending Clinician Vic Meyer MD Attending Clinician Doctor Unassigned, [place] Attending Clinician Unavailable Matilde Alvarez RN Attending Clinician Unavailable Only, Ang Db Test Attending Clinician Unavailable Jonathon Schnedier Attending Clinician JONATHON FLORES Attending Clinician Unavailable DARON THOMAS Attending Clinician Unavailable NESHA MOREJON Attending Clinician Unavailable Daron Thomas MD Attending Clinician [phone] ROSANA DUONG Attending Clinician Unavailable Payers Payer Name Policy Type Policy Number Effective Date Expiration Date Radha CARTER PLS [id number] 2021 00:00:00 HMO Problems Condition Condition Condition Status Onset Resolution Last Treating Co mments Source Name Details Category Date Date Treatment Clinician Date Onychomyco Onychomyco Disease Active U nivers sis sis 7-21 ity of 00:00: [address] Bruit of Bruit of Disease Active Unive rs left left 7-21 ity of carotid carotid 00:00: [place] artery artery 00 Medical Branch Hyperlipid Hyperlipid Disease Active U nivers emia emia 11-13 ity of 00:00: [place] [facility] Essential Essential Disease Active Uni vers hypertensi hypertensi 11-13 it y of on on 00:00: [place] [facility] Hypothyroi Hypothyroi Disease Active U nivers dism dism 11-13 ity of 00:00: [place] [facility] [place] Allergies, Adverse Reactions, Alerts Allergy Allergy Status Severity Reaction(s) Onset Inactive Treating Comm ents Source Name Type Date Date Clinician Tramadol Propensi Active Nausea Univer s ty to and/or 02-10 ity of adverse Vomiting 00:00: [place] reaction [facility] s Branch TRAMADOL DRUG Active High N/V Univers INGREDI 02-10 ity of 00:00: [place] [facility] Social History Social Habit Start Date Stop Date Quantity Comments Source Gender identity Universit y of [facility] Sexual orientation [facility] Alcohol intake 2023-08-11 2023-08-11 Current University of 00:00:00 00:00:00 non-drinker of [facility] [place] [facility] alcohol [place] (finding) Exposure to 2023-01-13 2023-01-23 Not sure [facility] SARS-CoV-2 (event) 00:00:00 15:38:00 [facility] Tobacco use and 2023-01-23 2023-01-23 Smokeless Universit y of exposure 00:00:00 00:00:00 tobacco non-user [facility] dical [place] History of Social 2023-01-23 2023-01-23 Univers ity of function 00:00:00 00:00:00 [facility] Sex Ass[birth year] [facility] 00:00:00 [facility]:00:00 [facility] Smoking Status Start Date Stop Date Source Tobacco smoking consumption [facility] unknown Never smoked tobacco [facility] Medications Ordered Filled Start Stop Current Ordering Indication Dosage Frequency Signature Comments Components Source Medication Medication Date Date Medication? Clinician (SIG) Name Name gabapentin 2022-09 Yes [id number] 100mg Take 1 Univers 100 mg 1-24 capsule by ity of capsule 00:00: mouth in [place] 00 the Medical morning Branch and 1 capsule at noon and 1 capsule in the evening. gabapentin 2022-09 Yes [id number] 100mg Take 1 Univers 100 mg -24 capsule by ity of capsule 00:00: mouth in [place] 00 the Medical morning Branch and 1 capsule at noon and 1 capsule in the evening. valACYclovi 2022-09- Yes [id number] 1g Take 1 Univers r (VALTREX) 10-11 tablet by it y of 1 gram 00:00: 05:59 mouth in [place] tablet 00 :00 the Medical morning Branch and 1 tablet at noon and 1 tablet in the evening. Do all this for 7 days. amoxicillin 2022-09- Yes [id number] 1{tbl} Take 1 Univers -clavulanat 10-11 tablet by it y of e 00:00: 05:59 mouth in [place] (AUGMENTIN) 00 :00 the Medical 875-125 mg morning Branch per tablet and 1 tablet in the evening. Do all this for 7 days. valACYclovi 2022-09- Yes [id number] 1g Take 1 Univers r (VALTREX) 10-11 tablet by it y of 1 gram 00:00: 05:59 mouth in [place] tablet 00 :00 the Medical morning Branch and 1 tablet at noon and 1 tablet in the evening. Do all this for 7 days. amoxicillin 2022-09- Yes [id number] 1{tbl} Take 1 Univers -clavulanat 10-11 tablet by it y of e 00:00: 05:59 mouth in [place] (AUGMENTIN) 00 :00 the Medical 875-125 mg morning Branch per tablet and 1 tablet in the evening. Do all this for 7 days. lidocaine 2022-09 Yes [id number] 10mL Take 10 mL Univers 2% viscous 10-10 [id number] by mouth ity of 2 % 00:00: every 6 [place] solution 00 (six) Medical hours as Branch needed for Oral mucosal pain. lidocaine 2022-09 Yes [id number] 10mL Take 10 mL Univers 2% viscous 1-23 55524 by mouth ity of 2 % 00:00: every 6 [place] solution 00 (six) Medical hours as Branch needed for Oral mucosal pain. lidocaine 2022-09 Yes [id number] 10mL Take 10 mL Univers 2% viscous 10-10 [id number] by mouth ity of 2 % 00:00: every 6 [place] solution 00 (six) Medical hours as Branch needed for Oral mucosal pain. Ciprofloxac 2022-09- Yes [id number] 2[drp] Place 2 Univers in 0.2 % 10-10 [id number] Drops in ity o f otic drops 00:00: 05:59 left ear [place] 00 :00 in the Medical morning Branch and 2 Drops in the evening. Do all this for 7 days. Ciprofloxac 2022-09- Yes [id number] 2[drp] Place 2 Univers in 0.2 % 10-10 [id number] Drops in ity o f otic drops 00:00: 05:59 left ear [place] 00 :00 in the Medical morning Branch and 2 Drops in the evening. Do all this for 7 days. Ciprofloxac 2022-09- Yes [id number] 2[drp] Place 2 Univers in 0.2 % 10-10 [id number] Drops in ity o f otic drops 00:00: 05:59 left ear [place] 00 :00 in the Medical morning Branch and 2 Drops in the evening. Do all this for 7 days. LISINOPRIL- Yes [id number] Take 2 Univers HYDROCHLORO 8-28 tablets by it y of THIAZIDE 00:00: mouth once [place] 20-12.5 mg 00 daily Medical per tablet Branch LISINOPRIL- 0 Yes [id number] Take 2 Univers HYDROCHLORO 8-28 tablets by it y of THIAZIDE 00:00: mouth once [place] 20-12.5 mg 00 daily Medical per tablet Branch LISINOPRIL- 0 Yes [id number] Take 2 Univers HYDROCHLORO 8-28 tablets by it y of THIAZIDE 00:00: mouth once [place] 20-12.5 mg 00 daily Medical per tablet Branch LISINOPRIL- 0 Yes [id number] Take 2 Univers HYDROCHLORO 8-28 tablets by it y of THIAZIDE 00:00: mouth once [place] 20-12.5 mg 00 daily Medical per tablet Branch clopidogreL Yes [id number] 75mg Take 1 Univers 75 mg 5-08 tablet by ity of tablet 00:00: mouth in [place] 00 the Medical morning. Branch amLODIPine 2023-0 Yes [id number] 10mg Take 1 U nivers 10 mg 5-08 tablet by ity of tablet 00:00: mouth in [place] 00 the Medical morning. Branch clopidogreL 2023-0 Yes [id number] 75mg Take 1 Univers 75 mg 5-08 tablet by ity of tablet 00:00: mouth in [place] 00 the Medical morning. Branch amLODIPine 2023-0 Yes [id number] 10mg Take 1 U nivers 10 mg 5-08 tablet by ity of tablet 00:00: mouth in [place] 00 the Medical morning. Branch clopidogreL 2023-0 Yes [id number] 75mg Take 1 Univers 75 mg 5-08 tablet by ity of tablet 00:00: mouth in [place] 00 the Medical morning. Branch amLODIPine 2023-0 Yes [id number] 10mg Take 1 U nivers 10 mg 5-08 tablet by ity of tablet 00:00: mouth in [place] 00 the Medical morning. Branch clopidogreL 2023-0 Yes [id number] 75mg Take 1 Univers 75 mg 5-08 tablet by ity of tablet 00:00: mouth in [place] the Medical morning. Branch amLODIPine 2023-0 Yes [id number] 10mg Take 1 U nivers 10 mg 5-08 tablet by ity of tablet 00:00: mouth in [place] 00 the Medical morning. Branch clopidogreL 2023-0 Yes [id number] 75mg Take 1 Univers 75 mg 5-08 tablet by ity of tablet 00:00: mouth in [place] 00 the Medical morning. Branch amLODIPine 2023-0 Yes [id number] 10mg Take 1 U nivers 10 mg 5-08 tablet by ity of tablet 00:00: mouth in [place] 00 the Medical morning. Branch clopidogreL 2023-0 Yes [id number] 75mg Take 1 Univers 75 mg 5-08 tablet by ity of tablet 00:00: mouth in [place] 00 the Medical morning. Branch amLODIPine 2023-0 Yes [id number] 10mg Take 1 U nivers 10 mg 5-08 tablet by ity of tablet 00:00: mouth in [place] 00 the Medical morning. Branch AMLODIPINE 2023-0 Yes [id number] Take 1 U nivers 10 mg 3-13 tablet by ity of tablet 00:00: mouth once [place] [address] daily Medical Branch CLOPIDOGREL 2023-0 Yes [id number] Take 1 Univers 75 mg 3-13 tablet by ity of tablet 00:00: mouth once [place] 00 daily Medical Branch AMLODIPINE 2022-0 Yes [id number] Take 1 U nivers 10 mg 3-13 tablet by ity of tablet 00:00: mouth once [place] daily Medical Branch CLOPIDOGREL 2022-0 Yes [id number] Take 1 Univers 75 mg 3-13 tablet by ity of tablet 00:00: mouth once [place] daily Medical Branch AMLODIPINE 2022-0 2022- No [id number] Take 1 Univers 10 mg 3-13 05-08 tablet by ity of tablet 00:00: 00:00 [place] :00 daily Medical Branch CLOPIDOGREL 2022-0 2022- No [id number] Take 1 Univers 75 mg 3-13 05-08 tablet by ity of tablet 00:00: 00:00 [place] 00 :00 daily Medical Branch AMLODIPINE 2022-0 2022- No [id number] Take 1 Univers 10 mg 3-13 05-08 tablet by ity of tablet 00:00: 00:00 [place] 00 :00 daily Medical Branch CLOPIDOGREL 2022-0 2022- No [id number] Take 1 Univers 75 mg 3-13 05-08 tablet by ity of tablet 00:00: 00:00 [place] 00 :00 daily Medical Branch foLIC acid 2021-2021- No 1mg Take 1 mg U nivers 1 mg tablet 0-10 10-10 by mouth ity of 11:23: 00:00 daily. [place] 27 :00 Medical Branch foLIC acid 2021-2021- No 1mg Take 1 mg U nivers 1 mg tablet 0-10 10-10 by mouth ity of 11:23: 00:00 daily. [place] 27 :00 Medical Branch naproxen 2021- No [id number] 500mg Take 1 U nivers 500 mg 5-26 07-26 tablet by ity of tablet 00:00: 04:59 mouth 2 [place] 00 :00 (two) Medical times Branch daily with meals for 60 days. naproxen Yes TAKE 1 Univers sodium 550 5-19 TABLET BY ity of mg tablet 00:00: MOUTH [place] 00 EVERY 12 Medical HOURS Branch NEEDED FOR PAIN CONTROL naproxen 2022-0 Yes TAKE 1 Univers sodium 550 5-19 TABLET BY ity of mg tablet 00:00: MOUTH [place] [address] EVERY 12 Medical HOURS Branch NEEDED FOR PAIN CONTROL naproxen 2021-0 Yes TAKE 1 Univers sodium 550 5-19 TABLET BY ity of mg tablet 00:00: MOUTH [place] 00 EVERY 12 Medical HOURS Branch NEEDED FOR PAIN CONTROL naproxen 2021-0 2- No TAKE 1 Univer s sodium 550 5-19 10-10 TABLET BY ity of mg tablet 00:00: 00:00 MOUTH [place] 00 :00 EVERY 12 Medical HOURS Branch NEEDED FOR PAIN CONTROL naproxen 2021-0 2021- No TAKE 1 Univer s sodium 550 5-19 10-10 TABLET BY ity of mg tablet 00:00: 00:00 MOUTH [place] 00 :00 EVERY 12 Medical HOURS Branch NEEDED FOR PAIN CONTROL cefUROXime 2021-0 Yes [id number] 250mg Take 1 Univers 250 mg 5-16 tablet by ity of tablet 00:00: [address] (two) Medical times Branch daily. cefUROXime 2021-0 Yes [id number] 250mg Take 1 Univers 250 mg 5-16 tablet by ity of tablet 00:00: [place] [address] (two) Medical times Branch daily. cefUROXime 2021-0 Yes [id number] 250mg Take 1 Univers 250 mg 5-16 tablet by ity of tablet 00:00: [address] (two) Medical times Branch daily. cefUROXime 2021-0 Yes [id number] 250mg Take 1 Univers 250 mg 5-16 tablet by ity of tablet 00:00: [place] [address] (two) Medical times Branch daily. cefUROXime 2021-0 2021- No [id number] 250mg Take 1 Univers 250 mg 5-16 10-10 tablet by ity of tablet 00:00: 00:00 [facility] 2 [place] 00 :00 (two) Medical times Branch daily. cefUROXime 2021-0 2021- No [id number] 250mg Take 1 Univers 250 mg 5-16 10-10 tablet by ity of tablet 00:00: 00:00 mouth 2 [place] 00 :00 (two) Medical times Branch daily. aspirin 81 2021-0 Yes 81mg Take 81 mg U nivers mg chewable 1-24 by mouth ity of tablet 13:52: daily. [place] [address] Medical Branch aspirin 81 2021-0 Yes 81mg Take 81 mg U nivers mg chewable 1-24 by mouth ity of tablet 13:52: daily. [address] Branch aspirin 81 2021-0 Yes 81mg Take 81 mg U nivers mg chewable 1-24 by mouth ity of tablet 13:52: daily. [address] Branch aspirin 81 2021-0 Yes 81mg Take 81 mg U nivers mg chewable 1-24 by mouth ity of tablet 13:52: daily. [address] Branch aspirin 81 2021-0 Yes 81mg Take 81 mg U nivers mg chewable 1-24 by mouth ity of tablet 13:52: daily. [address] Branch aspirin 81 2021-0 Yes 81mg Take 81 mg U nivers mg chewable 1-24 by mouth ity of tablet 13:52: daily. [address] Branch aspirin 81 2021-0 Yes 81mg Take 81 mg U nivers mg chewable 1-24 by mouth ity of tablet 13:52: daily. [address] Branch aspirin 81 2021-0 Yes 81mg Take 81 mg U nivers mg chewable 1-24 by mouth ity of tablet 13:52: daily. [address] Branch aspirin 81 2021-0 Yes 81mg Take 81 mg U nivers mg chewable 1-24 by mouth ity of tablet 13:52: daily. [address] Branch aspirin 81 2021-0 Yes 81mg Take 81 mg U nivers mg chewable 1-24 by mouth ity of tablet 13:52: daily. [address] Branch aspirin 81 2021-0 Yes 81mg Take 81 mg U nivers mg chewable 1-24 by mouth ity of tablet 13:52: daily. [address] Branch aspirin 81 2021-0 Yes 81mg Take 81 mg U nivers mg chewable 1-24 by mouth ity of tablet 13:52: daily. [address] Branch aspirin 81 2021-0 Yes 81mg Take 81 mg U nivers mg chewable 1-24 by mouth ity of tablet 13:52: daily. [address] Branch aspirin 81 2021-0 Yes 81mg Take 81 mg U nivers mg chewable 1-24 by mouth ity of tablet 13:52: daily. [address] foLIC acid 2021-0 Yes 1mg Take 1 mg Un [place] 1 mg tablet 1-24 by mouth ity of 13:51: daily. Medical Branch foLIC acid 2021-0 Yes 1mg Take 1 mg Un t[place] 1 mg tablet 1-24 by mouth ity of 13:51: daily. Medical Branch foLIC acid 0 Yes 1mg Take 1 mg Un [place] 1 mg tablet 1-24 by mouth ity of 13:51: daily. Medical Branch foLIC acid 0 Yes 1mg Take 1 mg Un taryn 1 mg tablet 1-24 by mouth ity of 13:51: daily. Medical Branch atorvastati 2021-0 Yes [id number] 10mg Take 1 Univers n 10 mg 1-24 tablet by ity of tablet 00:00: mouth at [place] 00 bedtime. Medical Branch lisinopriL- 2021-0 Yes [id number] TAKE 2 Univers hydrochloro 1-24 TABLETS BY it y of thiazide 00:00: MOUTH ONCE [place] 20-12.5 mg 00 DAILY Medical per tablet Branch clopidogreL 2021-0 Yes [id number] 75mg Take 1 Univers 75 mg 1-24 tablet by ity of tablet 00:00: mouth [place] 00 daily. Medical Branch amLODIPine 2021-0 Yes [id number] 10mg Take 1 U nivers 10 mg 1-24 tablet by ity of tablet 00:00: mouth [place] 00 daily. Medical Branch atorvastati 2021-0 Yes [id number] 10mg Take 1 Univers n 10 mg 1-24 tablet by ity of tablet 00:00: mouth at [place] 00 bedtime. Medical Branch lisinopriL- 2021-0 Yes [id number] TAKE 2 Univers hydrochloro 1-24 TABLETS BY it y of thiazide 00:00: MOUTH ONCE [place] 20-12.5 mg 00 DAILY Medical per tablet Branch clopidogreL 2021-0 Yes [id number] 75mg Take 1 Univers 75 mg 1-24 tablet by ity of tablet 00:00: mouth [place] 00 daily. Medical Branch amLODIPine 2021-0 Yes [id number] 10mg Take 1 U nivers 10 mg 1-24 tablet by ity of tablet 00:00: mouth [place] 00 daily. Medical Branch atorvastati 2021-0 Yes [id number] 10mg Take 1 Univers n 10 mg 1-24 tablet by ity of tablet 00:00: mouth at [place] 00 bedtime. Medical Branch lisinopriL- 0 Yes [id number] TAKE 2 Univers hydrochloro 1-24 TABLETS BY it y of thiazide 00:00: MOUTH ONCE [place] 20-12.5 mg 00 DAILY Medical per tablet Branch clopidogreL 2021-0 Yes [id number] 75mg Take 1 Univers 75 mg 1-24 tablet by ity of tablet 00:00: mouth [place] 00 daily. Medical Branch amLODIPine 2021-0 Yes [id number] 10mg Take 1 U nivers 10 mg 1-24 tablet by ity of tablet 00:00: mouth [place] 00 daily. Medical Branch atorvastati 0 Yes [id number] 10mg Take 1 Univers n 10 mg 1-24 tablet by ity of tablet 00:00: mouth at [place] 00 bedtime. Medical Branch lisinopriL- 0 Yes [id number] TAKE 2 Univers hydrochloro 1-24 TABLETS BY it y of thiazide 00:00: MOUTH ONCE [place] 20-12.5 mg 00 DAILY Medical per tablet Branch clopidogreL 2021-0 Yes [id number] 75mg Take 1 Univers 75 mg 1-24 tablet by ity of tablet 00:00: mouth [place] 00 daily. Medical Branch amLODIPine 0 Yes [id number] 10mg Take 1 U nivers 10 mg 1-24 tablet by ity of tablet 00:00: mouth [place] 00 daily. Medical Branch atorvastati Yes [id number] 10mg Take 1 Univers n 10 mg 1-24 tablet by ity of tablet 00:00: mouth at [place] 00 bedtime. Medical Branch lisinopriL- 2021-0 Yes [id number] TAKE 2 Univers hydrochloro 1-24 TABLETS BY it y of thiazide 00:00: MOUTH ONCE [place] 20-12.5 mg 00 DAILY Medical per tablet Branch clopidogreL 2021-0 Yes [id number] 75mg Take 1 Univers 75 mg 1-24 tablet by ity of tablet 00:00: mouth [place] 00 daily. Medical Branch amLODIPine 2021-0 Yes [id number] 10mg Take 1 U nivers 10 mg 1-24 tablet by ity of tablet 00:00: mouth [place] 00 daily. Medical Branch atorvastati 2021-0 Yes [id number] 10mg Take 1 Univers n 10 mg 1-24 tablet by ity of tablet 00:00: mouth at [place] 00 bedtime. Medical Branch lisinopriL- Yes [id number] TAKE 2 Univers hydrochloro 1-24 TABLETS BY it y of thiazide 00:00: MOUTH ONCE [place] 20-12.5 mg 00 DAILY Medical per tablet Branch clopidogreL Yes [id number] 75mg Take 1 Univers 75 mg 1-24 tablet by ity of tablet 00:00: mouth [place] 00 daily. Medical Branch amLODIPine Yes [id number] 10mg Take 1 U nivers 10 mg 1-24 tablet by ity of tablet 00:00: mouth [place] 00 daily. Medical Branch atorvastati Yes [id number] 10mg Take 1 Univers n 10 mg 1-24 tablet by ity of tablet 00:00: mouth at [place] [address] bedtime. Medical Branch lisinopriL- Yes [id number] TAKE 2 Univers hydrochloro 1-24 TABLETS BY it y of thiazide 00:00: MOUTH ONCE [place] 20-12.5 mg 00 DAILY Medical per tablet Branch atorvastati Yes [id number] 10mg Take 1 Univers n 10 mg 1-24 tablet by ity of tablet 00:00: mouth at [place] [address] bedtime. Medical Branch lisinopriL- Yes [id number] TAKE 2 Univers hydrochloro 1-24 TABLETS BY it y of thiazide 00:00: MOUTH ONCE [place] 20-12.5 mg 00 DAILY Medical per tablet Branch atorvastati Yes [id number] 10mg Take 1 Univers n 10 mg 1-24 tablet by ity of tablet 00:00: mouth at [place] [address] bedtime. Medical Branch lisinopriL- Yes [id number] TAKE 2 Univers hydrochloro 1-24 TABLETS BY it y of thiazide 00:00: MOUTH ONCE [place] 20-12.5 mg 00 DAILY Medical per tablet Branch atorvastati Yes [id number] 10mg Take 1 Univers n 10 mg 1-24 tablet by ity of tablet 00:00: mouth at [place] [address] bedtime. Medical Branch lisinopriL- Yes [id number] TAKE 2 Univers hydrochloro 1-24 TABLETS BY it y of thiazide 00:00: MOUTH ONCE [place] 20-12.5 mg 00 DAILY Medical per tablet Branch atorvastati Yes [id number] 10mg Take 1 Univers n 10 mg 1-24 tablet by ity of tablet 00:00: mouth at [place] 00 bedtime. Medical Branch atorvastati Yes [id number] 10mg Take 1 Univers n 10 mg 1-24 tablet by ity of tablet 00:00: mouth at [place] [address] bedtime. Medical Branch atorvastati Yes [id number] 10mg Take 1 Univers n 10 mg 1-24 tablet by ity of tablet 00:00: mouth at [place] [address] bedtime. Medical Branch atorvastati Yes [id number] 10mg Take 1 Univers n 10 mg 1-24 tablet by ity of tablet 00:00: mouth at [place] [address] bedtime. Medical Branch lisinopriL- 2022- No [id number] TAKE 2 Univers hydrochloro 1-24 -28 TABLETS BY i ty of thiazide 00:00: 00:00 MOUTH ONCE [place] 20-12.5 mg 00 :00 DAILY Medical per tablet Branch clopidogreL 2022- No [id number] 75mg Take 1 Univers 75 mg 1-24 -13 tablet by ity of tablet 00:00: 00:00 mouth [place] 00 :00 daily. Medical Branch amLODIPine 2022- No [id number] 10mg Take 1 Univers 10 mg 1-24 -13 tablet by ity of tablet 00:00: 00:00 mouth [place] 00 :00 daily. Medical Branch Immunizations Ordered Filled Date Status Comments Source Immunization Name Immunization Name Influenza Virus 2022-06-27 Completed Universit y of Vaccine,quad 00:00:00 [place] [facility] Free [place] 65+ Influenza Virus 2022-06-27 Completed Universit y of Vaccine,quad 00:00:00 [place] [facility] Im,preserve Free [place] 65+ Influenza Virus 2022-06-27 Completed Universit y of Vaccine,quad 00:00:00 [place] [facility] Im,preserve Free [place] 65+ Influenza Virus 2022-06-27 Completed Universit y of Vaccine,quad 00:00:00 [place] [facility]ica [facility] Im,preserve Free [place] 65+ Influenza Virus 2022-06-27 Completed Universit y of Vaccine,quad 00:00:00 [place] Medica l Im,preserve Free [place] 65+ Influenza Virus 2022-06-27 Completed Universit y of Vaccine,quad 00:00:00 [place] Medica l Im,preserve Free Branch 65+ Influenza Virus 2022-06-27 Completed Universit y of Vaccine,quad 00:00:00 [place] Medica l Im,preserve Free Branch 65+ SARS-COV-2 COVID-19 2020-11-18 Completed Unive rsity of PFIZER VACCINE 00:00:00 [facility] SARS-COV-2 COVID-19 2020-11-18 Completed Unive rsity of PFIZER VACCINE 00:00:00 [facility] [place] [facility] Branch SARS-COV-2 COVID-19 2020-11-18 Completed Unive rsity of PFIZER VACCINE 00:00:00 [facility] [place] [facility] Branch SARS-COV-2 COVID-19 2020-11-18 Completed Unive rsity of PFIZER VACCINE 00:00:00 [facility] SARS-COV-2 COVID-19 2020-11-18 Completed Unive rsity of PFIZER VACCINE 00:00:00 [facility] [place] [facility] Branch SARS-COV-2 COVID-19 2020-11-18 Completed Unive rsity of PFIZER VACCINE 00:00:00 [facility] [place] [facility] Branch SARS-COV-2 COVID-19 2020-11-18 Completed Unive rsity of PFIZER VACCINE 00:00:00 [facility] SARS-COV-2 COVID-19 2020-11-18 Completed Unive rsity of PFIZER VACCINE 00:00:00 [facility] SARS-COV-2 COVID-19 2020-11-18 Completed Unive rsity of PFIZER VACCINE 00:00:00 [facility] [place] [facility] Branch SARS-COV-2 COVID-19 2020-11-18 Completed Unive rsity of PFIZER VACCINE 00:00:00 [facility] [place] [facility] Branch SARS-COV-2 COVID-19 2020-11-18 Completed Unive rsity of PFIZER VACCINE 00:00:00 [facility] SARS-COV-2 COVID-19 2020-10-30 Completed Unive rsity of PFIZER VACCINE 00:00:00 [facility] SARS-COV-2 COVID-19 2020-10-30 Completed Unive rsity of PFIZER VACCINE 00:00:00 [facility] SARS-COV-2 COVID-19 2020-10-30 Completed Unive rsity of PFIZER VACCINE 00:00:00 [place] [facility]he[facility] Branch SARS-COV-2 COVID-19 2020-10-30 Completed Unive rsity of PFIZER VACCINE 00:00:00 [facility] SARS-COV-2 COVID-19 2020-10-30 Completed Unive rsity of PFIZER VACCINE 00:00:00 [facility] SARS-COV-2 COVID-19 2020-10-30 Completed Unive rsity of PFIZER VACCINE 00:00:00 [facility] [place] [facility] Branch SARS-COV-2 COVID-19 2020-10-30 Completed Unive rsity of PFIZER VACCINE 00:00:00 [facility] [place] [facility] Branch SARS-COV-2 COVID-19 2020-10-30 Completed Unive rsity of PFIZER VACCINE 00:00:00 [facility] SARS-COV-2 COVID-19 2020-10-30 Completed Unive rsity of PFIZER VACCINE 00:00:00 [facility] SARS-COV-2 COVID-19 2020-10-30 Completed Unive rsity of PFIZER VACCINE 00:00:00 [facility] SARS-COV-2 COVID-19 2020-10-30 Completed Unive rsity of PFIZER VACCINE 00:00:00 [facility] SARS-COV-2 COVID-19 Unknown Completed Unive rsity of PFIZER VACCINE [facility] SARS-COV-2 COVID-19 Unknown Completed Unive rsity of PFIZER VACCINE [facility] Influenza Virus Unknown Completed Universit y of Vaccine,quad [place] Medica l Im,preserve Free Branch 65+ (FLUAD) SARS-COV-2 COVID-19 Unknown Completed Unive rsity of PFIZER VACCINE [facility] SARS-COV-2 COVID-19 Unknown Completed Unive rsity of PFIZER VACCINE [facility] Influenza Virus Unknown Completed Universit y of Vaccine,quad [place] Medica l Im,preserve Free Branch 65+ (FLUAD) SARS-COV-2 COVID-19 Unknown Completed Unive rsity of PFIZER VACCINE [facility] SARS-COV-2 COVID-19 Unknown Completed Unive rsity of PFIZER VACCINE [facility] Influenza Virus Unknown Completed Universit y of Vaccine,quad [place] Medica l Im,preserve Free Branch 65+ (FLUAD) Vital Signs Vital Name Observation Time Observation Value Comments Source Systolic blood 2023-08-11 15:20:00 191 mm[Hg] [facility] Diastolic blood 2023-08-11 15:20:00 76 mm[Hg] [facility] Heart rate 2023-08-11 15:19:00 82 /min [facility] Body temperature 2023-08-11 15:19:00 36.44 Evita [facility] Respiratory rate 2023-08-11 15:19:00 17 /min [facility] Body weight 2023-08-11 15:19:00 75.116 kg [facility] BMI 2023-08-11 15:19:00 30.29 kg/m2 [facility] Oxygen saturation in 2023-08-11 15:19:00 99 /min [facility] by [place] [facility] ashe[facility] Pulse oximetry Branch Systolic blood 2023-08-10 17:06:00 167 mm[Hg] [facility] Diastolic blood 2023-08-10 17:06:00 75 mm[Hg] [facility] Heart rate 2023-08-10 17:06:00 75 /min [facility] Body temperature 2023-08-10 17:06:00 36.5 Evita [facility] Respiratory rate 2023-08-10 17:06:00 18 /min [facility] Body height 2023-08-10 17:06:00 157.5 cm [facility] Body weight 2023-08-10 17:06:00 83.915 kg [facility] BMI 2023-08-10 17:06:00 33.84 kg/m2 [facility] Oxygen saturation in 2023-08-10 17:06:00 100 /min [facility] blood by [place] [facility] Pulse oximetry Branch Systolic blood 2023-01-23 20:53:00 186 mm[Hg] [facility] Diastolic blood 2023-01-23 20:53:00 73 mm[Hg] [facility] Heart rate 2023-01-23 20:52:00 78 /min [facility] Body height 2023-01-23 20:52:00 154.9 cm [facility] Body weight 2023-01-23 20:52:00 77.111 kg [facility] BMI 2023-01-23 20:52:00 32.12 kg/m2 [facility] Systolic blood 2022-06-27 16:13:00 163 mm[Hg] [facility] Diastolic blood 2022-06-27 16:13:00 71 mm[Hg] [facility] Heart rate 2022-06-27 16:12:00 69 /min [facility] Body height 2022-06-27 16:12:00 154.9 cm [facility] Body weight 2022-06-27 16:12:00 74.844 kg [facility] BMI 2022-06-27 16:12:00 31.18 kg/m2 [facility] Systolic blood 2022-02-10 15:38:00 165 mm[Hg] [facility] Diastolic blood 2022-02-10 15:38:00 75 mm[Hg] [facility] Heart rate 2022-02-10 15:38:00 76 /min [facility] Body temperature 2022-02-10 15:38:00 35.89 Eivta [facility] Body height 2022-02-10 15:38:00 154.9 cm [facility] Body weight 2022-02-10 15:38:00 72.576 kg [facility] BMI 2022-02-10 15:38:00 30.23 kg/m2 [facility] Procedures Procedure Date / Time Performing Clinician Source Performed CONSENT/REFUSAL FOR 2023-08-10 17:03:23 [facility] CONSENT/REFUSAL FOR 2023-01-23 20:39:58 Doctor [facility] FLU 2022-06-27 16:22:19 [facility] [place] VACC([id number]),65+YR,0.5 [facility] ML,IM,ADJUVANTED,QUAD(FLU AD) INSURANCE CORRESPONDENCE 2022-02-03 05:01:00 Doctor Unassigned, [facility] Encounters Start End Encounter Admission Attending Care Care Encounter Source Date/Time Date/Time Type Type Clinicians Facility Department ID 2023-08-14 2023-08-14 Outpatient Ale MEYER [facility] [id number] Univers 09:45:00 09:45:00 VIC garber [facility] 2023-08-12 2023-08-12 Outpatient Ale BEAVERS [facility] [id number] Univers 09:20:00 09:20:00 REEKerwinU itbreanne [facility] 2023-08-11 2023-08-11 Outpatient Ale AMAYA [facility] [id number] Univers 09:20:00 09:39:02 LORETA garber [facility] 2023-08-11 2023-08-11 Urgent Jose Luis Loreta [facility] 1.2.840.114 [id number] Univers 09:20:00 09:39:02 Care Unknown, [id number] [id number] Richy as JACQUELYN?BLEA [id number] [address] MEDICAL OFFICE BUILDING 2023-08-10 2023-08-10 Emergency [facility] [id number] Univers 11:07:00 11:42:00 YENIFER garber [facility] 2023-08-10 2023-08-10 Emergency [facility] 1.2.840.114 [id number] Univers 11:07:00 11:42:00 Yenifer MACK 350.1.13.10 ity [facility] 4.2.7.2.686 [place] [facility] [id number] [facility] [address] 2023-07-26 2023-07-26 Outpatient Ale MEYER [facility] [id number] Univers 16:00:00 16:00:00 VIC garber [facility] 2023-05-14 2023-05-14 [facility] 1.2.840.114 [id number] Univers 00:00:00 00:00:00 [facility] [id number] it y of [place] [id number] Richy as JACQUELYN?BLEA [id number] [address] OFFICE [facility] 2023-01-23 2023-01-23 Office [facility] 1.2.840.114 [id number] Univers 15:45:00 16:00:00 Visit [facility] 350.1.13.10 it y of [place] 4.2.7.2.686 Richy as JACQUELYN?BLEA [id number] [address] OFFICE [facility] 2023-01-23 2023-01-[address] [facility] [id number] Univers 15:45:00 15:45:00 VIC y [facility] 2023-01-23 2023-01-23 Orders Doctor AUGUSTA 1.2.840.114 [id number] Univers 00:00:00 00:00:00 Only Unassigned, SERGIO 350.1.13.10 ity of [place] [facility] 4.2.7.2.686 Richy as [phone] [address] 2022-11-25 2022-11-25 Refill [facility] 1.2.840.114 [id number] Univers 00:00:00 00:00:00 [facility] 350.1.13.10 it y of [place] 4.2.7.2.686 Richy as JACQUELYN?BLEA [id number] [address] OFFICE [facility] 2022-06-27 2022-06-[address] [facility] [id number] Univers 11:15:00 11:31:19 VIC [facility] 2022-06-27 2022-06-27 Office [facility] 1.2.840.114 [id number] Univers 11:15:00 11:31:19 Visit [facility] 350.1.13.10 it y of [place] 4.2.7.2.686 Richy as JACQUELYN?BLEA [id number] [address] OFFICE [facility] 2022-06-21 2022-06-[address] [facility] [id number] Univers 15:15:00 15:15:00 VIC ity [facility] 2022-06-10 2022-06-10 Letter AUGUSTA Alvarez 1.2.840.114 [id number] Univers 00:00:00 00:00:00 (Out) Matilde SERGIO 350.1.13.10 ity of [facility] 4.2.7.2.686 Richy as [phone] [address] 2022-06-09 2022-06-09 Laboratory Only, Ang Db Test [facility] 1.2.8 40.114 [id number] Univers 14:15:00 14:20:21 Only Unknown, Attending HEALTH 350.1.13.10 ity of Jonathon Flores 4.2.7.2.686 [facility]?BLEA [id number] Pr [place] [address] MEDICAL OFFICE BUILDING 2022-06-09 2022-06-09 Outpatient R LOURDES [facility] [id number] Univers 14:15:00 14:15:00 JONATHON [facility] 2022-06-03 2022-06-03 Outpatient R WILLIAM [facility] [id number] Univers 15:00:00 15:00:00 DARON breanne [facility] 2022-03-10 2022-03-10 Outpatient Ale MOREJON [facility] [id number] Univers 13:00:00 13:00:00 NESHA [facility] 2022-03-10 2022-03-10 Outpatient Ale THOMAS [facility] [id number] Univers 10:40:00 10:40:00 DARON [facility] 2022-02-10 2022-02-10 [facility] 1.2.840.114 [id number] Univers 10:42:56 23:59:00 Encounter Daron [facility]INO [facility]13.10 [facility] 4.2.7.2.686 [facility] CENTER AT [phone] Pr magi RIVERA 809 [facility] 2022-02-10 2022-02-10 Office [facility] [id number] Univers 10:30:00 11:47:16 Visit Daron [facility] 350.1.13.10 ity of [facility] 4.2.7.2.686 [place] [phone] Pr magi [facility] 2022-02-10 2022-02-10 Outpatient Ale WILLIAM [facility] [id number] Univers 10:30:00 11:47:16 DARON breanne [facility] 2022-02-10 2022-02-10 Outpatient Ale THOMAS [facility] [id number] Univers 10:30:00 10:30:00 DARON breanne [facility] 2022-02-04 2022-02-04 Telephone [facility] 1.2.840.114 [id number] Univers 00:00:00 00:00:00 [facility] 350.1.13.10 it y of [place] 4.2.7.2.686 Richy as JACQUELYN?BLEA [phone] [facility] [place] [address] [place] [address] OFFICE [facility] 2022-02-03 2022-02-03 Telephone [facility] 1.2.840.114 [id number] Univers 00:00:00 00:00:00 [facility] 350.1.13.10 it y of [facility] 4.2.7.2.686 Richy as JACQUELYN?BLEA [id number] [address] OFFICE [facility] 2022-02-03 2022-02-03 Telephone [facility] 1.2.840.114 [id number] Univers 00:00:00 00:00:00 [facility] 350.1.13.10 it y of [place] 4.2.7.2.686 Richy as JACQUELYN?BLEA [id number] [address] OFFICE [facility] 2022-02-03 2022-02-03 Orders Doctor AUGUSTA 1.2.840.114 [id number] Univers 00:00:00 00:00:00 Only Unassigned, SERGIO 350.1.13.10 ity of [place] [facility] 4.2.7.2.686 Richy as [id number] [address] 2022-01-31 2022-01-31 Office [facility] 1.2.840.114 [id number] Univers 10:30:00 10:53:49 Visit [facility] 350.1.13.10 it y of [place] 4.2.7.2.686 Richy as JACQUELYN?BLEA [id number] [address] MEDICAL OFFICE [facility] 2022-01-31 2022-01-31 [facility] [id number] Univers 10:30:00 10:53:49 [facility] 2022-01-31 2022-01-31 [facility] [id number] Univers 10:30:00 10:30:00 [facility] 2021-11-12 2021-11-12 [facility] [id number] Univers 13:15:00 13:15:00 [facility] 2021-10-11 2021-10-11 Outpatient [facility] [id number] Univers 13:30:00 14:07:10 [facility] 2021-10-11 2021-10-11 Office [facility] 1.2.840.114 [id number] Univers 13:30:00 14:07:10 Visit [facility] 350.1.13.10 it y of [place] [facility] 4.2.7.2.686 Richy as JACQUELYN?BLEA [id number] [address] MEDICAL OFFICE [facility] 2021-10-11 2021-10-11 Outpatient [facility] [id number] Univers 13:30:00 13:30:00 [facility] 2021-10-11 2021-10-11 Orders Doctor AUGUSTA 1.2.840.114 [id number] Univers 00:00:00 00:00:00 Only Unassigned, SERGIO 350.1.13.10 ity of [place] [facility] 4.2.7.2.686 Richy as [phone] [address] 2021-09-06 2021-09-06 Telephone [facility] 1.2.840.114 [id number] Univers 00:00:00 00:00:00 [facility] 350.1.13.10 it y of Yovani MACK 4.2.7.2.686 Richy as JACQUELYN?BLEA [phone] Pr [place] [address] MEDICAL OFFICE BUILDING 2021-08-30 2021-08-30 Orders Doctor AUGUSTA 1.2.840.114 [id number] Univers 00:00:00 00:00:00 Only Unassigned, SERGIO 350.1.13.10 ity of [place] [facility] 4.2.7.2.686 Richy as [id number] [address] 2020-11-18 2020-11-[address] [facility] [id number] Univers 11:30:00 11:30:00 ROSANA [facility] 2020-10-30 2020-10-30 Outpatient R RHODA [facility] [id number] Univers 13:20:00 13:20:00 [facility] 2020-08-12 2020-08-12 [facility] 1.2.840.114 [id number] Univers 00:00:00 00:00:00 [facility] 350.1.13.10 it y of [place] 4.2.7.2.686 Richy as Professio [phone] Pr magi garg [address] [place] [address] Office Building One Results This patient has no known results.
[2023-08-12] MEDS ORDERED: NA CHLORIDE 0.9% 100 ML ONE (11:10)
[2023-08-12] MEDS ORDERED: METHYLPREDNISOLONE 125 MG INJ ONE (11:10)
[2023-08-12] MEDS ORDERED: NA CHLORIDE 0.9% 1,000 ML ONE (11:10)
[2023-08-12] MEDS ORDERED: PIPERACIL/TAZO 3.375 GM VIAL IV ONE (11:10)
[2023-08-12 11:55] LABS: Absolute Lymphocytes (CBC) 1.5 K/uL (0.7-4.9); Hematocrit 38.6 % (36.0-45.0); Lymphocytes % 23.7 % (15.3-44.8); MCV 89.5 fL (80-100); Platelets 296 thou/uL (152-406); RBC Red Blood Cell Count 4.31 M/uL (3.86-4.86)
[2023-08-12 12:12] LABS: Albumin 3.9 g/dL (3.4-5.0); Bilirubin Total 0.6 mg/dL (0.2-1.0); Potassium 3.7 mEq/L (3.5-5.1); Protein, Total 9.3 g/dL (6.4-8.2)
--- NOTE | 2023-08-12 12:14 | ER ---
Nurse's Notes [facility] Name: Erin Marsh Age: 78 yrs Sex: Female : 1945 Arrival Date: 08/12/2023 Time: 10:04 Bed 19 Private MD: Diagnosis: Zoster without complications Presentation: 08/12 10:23 Coronavirus screen: Vaccine status: Patient reports receiving the 2nd dose of the covid ll1 vaccine. Client denies travel out of the [place] in the last 14 days. At this time, the client does not indicate any symptoms associated with coronavirus-19. Ebola Screen: Patient denies travel to an Ebola-affected area in the 21 days before illness onset. Initial Sepsis Screen: Does the patient meet any 2 criteria? No. Patient's initial sepsis screen is negative. Does the patient have a suspected source of infection? No. Patient's initial sepsis screen is negative. Risk Assessment: Do you want to hurt yourself or someone else? Patient reports no desire to harm self or others. Onset of symptoms was August 08, 2023. 10:23 Method Of Arrival: Ambulatory [facility] 10:23 Acuity: ESTHER 3 1 10:27 Chief complaint: Patient states: Diagnosed with a ear infection, then shingles at [place] [address] the past 3 days. Pain is too severe, not eating well, and not sleeping either. Triage Assessment: 10:28 General: Appears uncomfortable, ill, Behavior is calm, cooperative, appropriate for [facility] age. Pain: Complains of pain in L face Pain currently is 10 out of 10 on a pain scale. Quality of pain is described as aching, sharp, stinging. EENT: Reports sores in mouth, sores to L side of face. Neuro: Reports dizziness, headache. Derm: Reports rash/sores to L side of face. Historical: - Allergies: 10:22 Vicodin; vomiting; ll1 - PMHx: 10:22 CVA; Hypertensive disorder; ll1 - PSHx: 10:22 None; ll1 - Immunization history:: Adult Immunizations up to date. - Social history:: Smoking status: Patient denies any tobacco usage or history of. Assessment: 12:30 Reassessment: Pt states she did not take her BP meds today. Advised to take home BP eh3 meds. Vital Signs: 10:23 BP 172 / 103; Pulse 77; Resp 17; Temp 97.8; Pulse Ox 97% ; Weight 74.84 kg; Height 5 ll1 ft. 2 in. ; Pain 10/10; 11:30 BP 176 / 66; Pulse 63; Resp 16; Pulse Ox 96% on R/A; eh3 12:30 BP 176 / 145; Pulse 72; Resp 18; Pulse Ox 96% on R/A; eh3 10:23 Body Mass Index 30.18 (74.84 kg, 157.48 cm) ll1 10:23 Pain Scale: Adult ll1 ED Course: 10:09 Patient arrived in ED. mg5 10:10 Joseph Desouza MD is Attending Physician. sp3 10:22 Arm band placed on Patient placed in an exam room, on a stretcher. ll1 10:24 Triage completed. ll1 10:48 Rachel Lopez, RN is Primary Nurse. eh3 11:30 Initial lab(s) drawn, by me, sent to lab. eh3 11:30 Missed attempt(s): 22 gauge in left antecubital area. Bleeding controlled, band aid eh3 applied, catheter tip intact. 12:03 Inserted saline lock: 22 gauge in left forearm, using aseptic technique. bc6 12:55 No provider procedures requiring assistance completed. IV discontinued, intact, eh3 bleeding controlled, No redness/swelling at site. Pressure dressing applied. Administered Medications: 11:50 Drug: NS 0.9% IV 1000 ml IV at 1 bolus Per protocol; 1000 mL bolus Route: IV; Rate: 1 eh3 bolus; Site: left forearm; 12:37 Follow up: IV Status: Completed infusion; IV Intake: 800ml eh3 11:50 Drug: MethylPrednisoLONE IVP 125 mg IVP once Route: IVP; Site: left forearm; eh3 12:37 Follow up: Response: No adverse reaction eh3 11:50 Drug: Piperacillin-Tazobactam IVPB 3.375 grams IVPB once over 60 mins; (mix in NS 100 eh3 mL) Route: IVPB; Infused Over: 60 mins; Site: left forearm; 12:37 Follow up: Response: No adverse reaction; IV Status: Completed infusion; IV Intake: eh3 100ml Intake: 12:37 IV: 100ml; Total: 100ml. eh3 12:37 IV: 800ml; Total: 900ml. eh3 Outcome: 12:13 Discharge ordered by . sp3 12:55 Discharged to home ambulatory, 3 12:55 Condition: stable 12:55 Discharge instructions given to patient, Instructed on discharge instructions, follow up and referral plans. medication usage, Demonstrated understanding of instructions, follow-up care, medications, Prescriptions given X 2, 12:56 Patient left the ED. eh3 Signatures: Neo Hernandez RN RN ll1 Joseph Desouza MD MD sp3 Rachel Lopez RN RN eh3 Caitlin Burotn 6 Marlene Flores mg5 Corrections: (The following items were deleted from the chart) 12:01 12:01 Missed attempt(s): 22 gauge in left antecubital area. Bleeding controlled, band eh3 aid applied, catheter tip intact. eh3 12:03 11:50 MethylPrednisoLONE IVP 125 mg IVP in left femoral eh3 3
--- NOTE | 2023-08-12 12:14 | EDPHYS ---
Physician Documentation [facility] Name: Erin Marsh Age: 78 yrs Sex: Female : 1945 Arrival Date: 08/12/2023 Time: 10:04 Bed 19 Private MD: ED Physician Joseph Desouza HPI: 08/12 10:39 This 78 yrs old Female presents to ER via Ambulatory with complaints of Mouth sp3 Problem, Dizziness. 10:39 78-year-old female with history of CVA, hypertension now presents to the ED with chief sp3 complaint shingles on the face. Patient was seen initially at an emergency department and twice at the urgent care with this being her fourth visit. She is currently on acyclovir, Augmentin, gabapentin, but no steroids. Patient states the sores are now on her lips and oral mucosa also extending into her scalp. All symptoms are on the left side. There is no motor weakness or any other symptoms. Patient states it is difficult to swallow due to pain but she is still able to. No airway involvement and no problems with breathing. She denies fever, neck pain, chest pain, shortness of breath, back pain, abdominal pain, vomiting, diarrhea, or any other signs or symptoms on ROS at this time. Patient does state that she is on a "blood thinner" but cannot recall the name. Review of the medical record demonstrates no documentation of prior medication.. Historical: - Allergies: 10:22 Vicodin; vomiting; ll1 - PMHx: 10:22 CVA; Hypertensive disorder; ll1 - PSHx: 10:22 None; ll1 - Immunization history:: Adult Immunizations up to date. - Social history:: Smoking status: Patient denies any tobacco usage or history of. ROS: 10:42 Constitutional: Negative for fever, chills, and weight loss, Eyes: Negative for injury, sp3 pain, redness, and discharge, ENT: Negative for injury, pain, and discharge, Neck: Negative for injury, pain, and swelling, Cardiovascular: Negative for chest pain, palpitations, and edema, Respiratory: Negative for shortness of breath, cough, wheezing, and pleuritic chest pain, Abdomen/GI: Negative for abdominal pain, nausea, vomiting, diarrhea, and constipation, Back: Negative for injury and pain, MS/Extremity: Negative for injury and deformity, Neuro: Negative for headache, weakness, numbness, tingling, and seizure, Psych: Negative for depression, anxiety, suicide ideation, homicidal ideation, and hallucinations, Allergy/Immunology: Negative for hives, rash, and allergies, Endocrine: Negative for neck swelling, polydipsia, polyuria, polyphagia, and marked weight changes, 10:42 All other systems are negative, Exam: 10:42 Constitutional: This is a well developed, well nourished patient who is awake, alert, sp3 and in no acute distress. Neck: Trachea midline, no thyromegaly or masses palpated, and no cervical lymphadenopathy. Supple, full range of motion without nuchal rigidity, or vertebral point tenderness. No Meningismus. Chest/axilla: Normal chest wall appearance and motion. Nontender with no deformity. No lesions are appreciated. Cardiovascular: Regular rate and rhythm with a normal S1 and S2. No gallops, murmurs, or rubs. Normal PMI, no JVD. No pulse deficits. Respiratory: Lungs have equal breath sounds bilaterally, clear to auscultation and percussion. No rales, rhonchi or wheezes noted. No increased work of breathing, no retractions or nasal flaring. Abdomen/GI: Soft, non-tender, with normal bowel sounds. No distension or tympany. No guarding or rebound. No evidence of tenderness throughout. Back: No spinal tenderness. No costovertebral tenderness. Full range of motion. MS/ Extremity: Pulses equal, no cyanosis. Neurovascular intact. Full, normal range of motion. Neuro: Awake and alert, GCS 15, oriented to person, place, time, and situation. Cranial nerves II-XII grossly intact. Motor strength 5/5 in all extremities. Sensory grossly intact. Cerebellar exam normal. Normal gait. Psych: Awake, alert, with orientation to person, place and time. Behavior, mood, and affect are within normal limits. 10:42 Skin: Multiple lesions extending in a dermatomal pattern on the left side of the face consistent with a facial nerve. Lesions involve scalp, left side of the face, ear, nose and at V1, V2, V3 pattern. Oral mucosa is also involved on the left side. Lesions are consistent with shingles with erythema with crusting and blisters noted.. Vital Signs: 10:23 BP 172 / 103; Pulse 77; Resp 17; Temp 97.8; Pulse Ox 97% ; Weight 74.84 kg; Height 5 ll1 ft. 2 in. ; Pain 10; 11:30 BP 176 / 66; Pulse 63; Resp 16; Pulse Ox 96% on R/A; eh3 12:30 BP 176 / 145; Pulse 72; Resp 18; Pulse Ox 96% on R/A; eh3 10:23 Body Mass Index 30.18 (74.84 kg, 157.48 cm) ll1 10:23 Pain Scale: Adult ll1 MDM: 10:10 Patient medically screened. sp3 10:43 Data reviewed: vital signs, nurses notes, old medical records, lab test result(s). ED sp3 course: Patient has extensive zoster along the face. She is already on the correct medications however I will add steroid and also administer IV fluids here in the ED. Zosyn IV x1 dose to prevent secondary bacterial skin infection. Solu-Medrol 125 mg IV x1 as well. Supportive care alone is indicated with no further intervention in the ED. Likely discharge home with continued medications which she is already been prescribed.. 08/12 10:32 Order name: CBC with Diff; Complete Time: 12:12 sp3 08/12 10:32 Order name: CMP; Complete Time: 12:12 sp3 08/12 10:32 Order name: IV Saline Lock; Complete Time: 12:00 sp3 08/12 10:32 Order name: Labs collected and sent; Complete Time: 12:00 sp3 Administered Medications: 11:50 Drug: NS 0.9% IV 1000 ml IV at 1 bolus Per protocol; 1000 mL bolus Route: IV; Rate: 1 eh3 bolus; Site: left forearm; 12:37 Follow up: IV Status: Completed infusion; IV Intake: 800ml eh3 11:50 Drug: MethylPrednisoLONE IVP 125 mg IVP once Route: IVP; Site: left forearm; 3 12:37 Follow up: Response: No adverse reaction eh3 11:50 Drug: Piperacillin-Tazobactam IVPB 3.375 grams IVPB once over 60 mins; (mix in NS 100 eh3 mL) Route: IVPB; Infused Over: 60 mins; Site: left forearm; 12:37 Follow up: Response: No adverse reaction; IV Status: Completed infusion; IV Intake: eh3 100ml Disposition Summary: 08/12/23 12:13 Discharge Ordered Notes: Location: Home sp3 Condition: Stable sp3 Diagnosis - Zoster without complications sp3 Followup: sp3 - With: Private Physician - When: Upon discharge from the Emergency Department - Reason: Continuance of care Discharge Instructions: - Discharge Summary Sheet sp3 - Shingles sp3 Forms: - Medication Reconciliation Form sp3 - Thank You Letter sp3 - Antibiotic Education sp3 - Prescription Opioid Use sp3 - Patient Portal Instructions sp3 - Leadership Thank You Letter sp3 Prescriptions: - trifluridine 1 % Ophthalmic drops - instill 1 drop OPHTHALMIC route every 2 hours administer 9 doses per day while sp3 awake; 5 milliliter; Refills: 0, Product Selection Permitted - Prednisone 20 mg Oral Tablet - take 3 tablets ORAL route once daily for 5 days; 15 tablet; Refills: 0, Product sp3 Selection Permitted Signatures: Dispatcher [employer] Neo Richter RN RN ll1 Joseph Desouza MD MD sp3 Rachel Lopez RN RN eh3
[2023-08-12 13:04] VITALS: TEMP 97.8
[2023-08-12 13:10] VITALS: O2SAT 96
[2023-08-12 13:15] VITALS: BP 176/145
== END 2023-08-12 12:56 | disposition home or self-care (01) ==
LOC: ER 10:04
DX: B02.9 Zoster without complications (principal); Z88.5 Allergy status to narcotic agent
CPT/HCPCS: 96365; 85025; 36415; 80053; 96375; 99284; J2543; J2930; J7030

== ENCOUNTER → 2023-10-19 | Emergency (ER) | payer OTHER ==
[~2023-10-19] MED LIST: AZITHROMYCIN 250 MG TAB ONE
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
[2023-10-19 15:02] VITALS: BP 120/84; TEMP 98; O2SAT 100
== END ==
LOC: ER 12:14
DX: S63.8X1A Sprain of other part of right wrist and hand, initial encounter (principal); J06.9 Acute upper respiratory infection, unspecified; V49.49XA Driver injured in collision with other motor vehicles in traffic accident, initial encounter; I10 Essential (primary) hypertension; Z86.73 Personal history of transient ischemic attack (TIA), and cerebral infarction without residual deficits; Z79.01 Long term (current) use of anticoagulants; Z88.5 Allergy status to narcotic agent; Z88.6 Allergy status to analgesic agent

== ENCOUNTER 2025-05-15 11:38 | Emergency (ER) | payer OTHER ==
[2025-05-15] MEDS ORDERED: FLUCONAZOLE 100 MG TAB ONE (12:18)
--- NOTE | 2025-05-15 12:19 | EDPHYS ---
Physician Documentation [facility] Name: Erin Marsh Age: 79 yrs Sex: Female : 1945 Arrival Date: 05/15/2025 Time: 11:38 Bed IW1 Private MD: ED Physician Vince Bain HPI: 05/15 12:20 This 79 yrs old Female presents to ER via Ambulatory with complaints of Rash. dr5 12:20 The patient's rash thought to be caused by Dermatitis. The rash is located on the Under dr5 bilateral breast. Onset: The symptoms/episode began/occurred acutely. Historical: - Allergies: 12:08 NSAIDS; me1 12:08 Vicodin; vomiting; me1 - PMHx: 12:08 CVA; Hypertensive disorder; shingles (Hypertensive disorder); me1 - PSHx: 12:08 heart cath (Unknown); me1 - Immunization history:: Adult Immunizations up to date. - Infectious Disease History:: Denies. - Social history:: Smoking status: Patient denies any tobacco usage or history of. ROS: 12:20 Constitutional: as per hpi dr5 Exam: 12:20 Constitutional: This is a well developed, well nourished patient who is awake, alert, dr5 and in no acute distress. Head/Face: Normocephalic, atraumatic. Eyes: Pupils equal round and reactive to light, extra-ocular motions intact. Lids and lashes normal. Conjunctiva and sclera are non-icteric and not injected. Cornea within normal limits. Periorbital areas with no swelling, redness, or edema. Neck: Trachea midline, no thyromegaly or masses palpated, and no cervical lymphadenopathy. Supple, full range of motion without nuchal rigidity, or vertebral point tenderness. No Meningismus. Chest/axilla: Normal chest wall appearance and motion. Nontender with no deformity. No lesions are appreciated. Cardiovascular: Regular rate and rhythm with a normal S1 and S2. Normal PMI, no JVD. No pulse deficits. Respiratory: Lungs have equal breath sounds bilaterally, clear to auscultation. No rales, rhonchi or wheezes noted. No increased work of breathing, no retractions or nasal flaring. Back: No spinal tenderness. No costovertebral tenderness. Full range of motion. MS/ Extremity: Pulses equal, no cyanosis. Neurovascular intact. Full, normal range of motion. Neuro: Awake and alert, GCS 15, oriented to person, place, time, and situation. Cranial nerves II-XII grossly intact. Motor strength 5/5 in all extremities. Sensory grossly intact. Cerebellar exam normal. Normal gait. 12:20 Skin: induration, that is moderate is noted, located on the below bilateral breasts, rash can be described as Red, moist patch under fold of bilateral breast. , Vital Signs: 12:02 BP 137 / 71; Pulse 68; Resp 18; Temp 98.3; Pulse Ox 98% ; Weight 82.55 kg; Height 5 ft. me1 1 in. ; Pain 8/10; 12:02 Body Mass Index 34.39 (82.55 kg, 154.94 cm) me1 12:02 Pain Scale: Adult me1 MDM: 11:50 Medical Screening Exam initiated dr5 12:20 Differential diagnosis: impetigo, varicella, allergic reaction, Fungal Bria. Data dr5 reviewed: vital signs, nurses notes. I considered the following discharge prescriptions or medication management in the emergency department I discussed and recommended Over The Counter medications, Medications were administered in the Emergency Department. See MAR. Care significantly affected by the following chronic conditions: CVA, hypertension, shingles. Care significantly affected by the following Social Determinants of Health: Poor access to healthcare and/or lack of insurance, Poor access to transportation, Problems related to employment. Counseling: I had a detailed discussion with the patient and/or guardian regarding the historical points, exam findings, and any diagnostic results supporting the discharge/admit diagnosis, the presence of at least one elevated blood pressure reading (>120/80) during this emergency department visit, the need for outpatient follow up, for definitive care, a international accounting manager, to return to the emergency department if symptoms worsen or persist or if there are any questions or concerns that arise at home. Special discussion: I discussed with the patient/guardian in detail that at this point there is no indication for admission to the hospital. It is understood, however, that if the symptoms persist or worsen the patient needs to return immediately for re-evaluation. Based on the history and exam findings, there is no indication for further emergent testing or inpatient evaluation. I discussed with the patient/guardian the need to see the international accounting manager for further evaluation of the symptoms. ED course: Rashes consistent with fungal infection. Will give patient Diflucan x 1 dose here as well as clotrimazole cream. Recommended patient follow primary care doctor as well as dermatology as needed. All question answered. Strict ER precautions given. Administered Medications: 12:22 Drug: Fluconazole PO 150 mg PO once Route: PO; me1 12:22 Follow up: Response: No adverse reaction me1 Disposition Summary: 05/15/25 12:18 Discharge Ordered Notes: Location: Home dr5 Condition: Stable dr5 Diagnosis - Other sites of candidiasis dr5 Followup: dr5 - With: Emergency Department - When: As needed - Reason: Worsening of condition Followup: dr5 - With: Private Physician - When: 1 - 2 days - Reason: Recheck today's complaints, Continuance of care, Re-evaluation by your physician Discharge Instructions: - Discharge Summary Sheet dr5 - Skin Yeast Infection dr5 Forms: - Medication Reconciliation Form dr5 - Patient Portal Instructions dr5 - Leadership Thank You Letter dr5 Prescriptions: - Clotrimazole 1 % Topical Cream - Apply to affected area 1 application TOPICAL route every 12 hours; 15 gram; dr5 Refills: 0, Product Selection Permitted Addendum: 05/16/2025 13:30 Co-signature as Attending Physician, Vince Bain MD I agree with the assessment and c kimble plan of care. Signatures: Vince Bain MD MD cha Eddleman, Michelle, NATASHA RN me1 Meek Anthony, HEAT SEALING MACHINE OPERATOR-C HEAT SEALING MACHINE OPERATOR-Cdr5 Corrections: (The following items were deleted from the chart) 05/15 12:10 12:08 PSHx: Stented artery; me1 me1
--- NOTE | 2025-05-15 12:19 | ER ---
Nurse's Notes [facility] Name: Eirn Marsh Age: 79 yrs Sex: Female : 1945 Arrival Date: 05/15/2025 Time: 11:38 Bed IW1 Private MD: Diagnosis: Other sites of candidiasis Presentation: 05/15 12:02 Chief complaint: Patient states: redness under bilateral breasts that started 2 days me1 ago. Was itching but is now painful 8/10. Coronavirus screen: Vaccine status: Patient reports receiving the 2nd dose of the covid vaccine. Ebola Screen: No symptoms or risks identified at this time. Initial Sepsis Screen: Does the patient meet any 2 criteria? No. Patient's initial sepsis screen is negative. Does the patient have a suspected source of infection? No. Patient's initial sepsis screen is negative. Risk Assessment: Do you want to hurt yourself or someone else? Patient reports no desire to harm self or others. Onset of symptoms was May 13, 2025. 12:02 Method Of Arrival: Ambulatory ga1 12:02 Acuity: ESTHER 4 me1 Triage Assessment: 12:08 General: Appears uncomfortable, Behavior is calm, cooperative, appropriate for age, me1 Reports redness under bilateral breasts for 2 days ago. Was itching but has become painful, pain 8/10 today. Pain: Complains of pain in under breasts Pain does not radiate. Pain currently is 8 out of 10 on a pain scale. Quality of pain is described as stinging, Pain began 1 day ago. Is continuous. EENT: No signs and/or symptoms were reported regarding the EENT system. Neuro: Level of Consciousness is awake, alert, obeys commands, Oriented to person, place, time, situation, Appropriate for age. Cardiovascular: Patient's skin is warm and dry. Respiratory: Airway is patent Respiratory effort is even, unlabored, Respiratory pattern is regular, symmetrical. GI: No signs and/or symptoms were reported involving the gastrointestinal system. : No signs and/or symptoms were reported regarding the genitourinary system. Derm: Rash noted that is red, on under bilateral breasts. Musculoskeletal: Circulation, motion, and sensation intact. Range of motion: intact in all extremities. Historical: - Allergies: 12:08 NSAIDS; me1 12:08 Vicodin; vomiting; me1 - PMHx: 12:08 CVA; Hypertensive disorder; shingles (Hypertensive disorder); me1 - PSHx: 12:08 heart cath (Unknown); me1 - Immunization history:: Adult Immunizations up to date. - Infectious Disease History:: Denies. - Social history:: Smoking status: Patient denies any tobacco usage or history of. Screenin:23 [facility] ED Fall Risk Assessment (Adult) History of falling in the last 3 months, me1 including since admission No falls in past 3 months (0 pts) Confusion or Disorientation No (0 pts) Intoxicated or Sedated No (0 pts) Impaired Gait No (0 pts) Mobility Assist Device Used No (0 pt) Altered Elimination No (0 pt) Score/Fall Risk Level 0 - 2 = Low Risk Maintained a safe environment, Provided non-skid footwear, Hourly rounding (assess needs \T\ fall precautionary measures) done. Abuse screen: Denies threats or abuse. Nutritional screening: No deficits noted. Tuberculosis screening: No symptoms or risk factors identified. Assessment: 12:23 General: See triage assessment. me1 Vital Signs: 12:02 BP 137 / 71; Pulse 68; Resp 18; Temp 98.3; Pulse Ox 98% ; Weight 82.55 kg; Height 5 ft. me1 1 in. ; Pain 8/10; 12:02 Body Mass Index 34.39 (82.55 kg, 154.94 cm) me1 12:02 Pain Scale: Adult me1 ED Course: 11:50 Patient arrived in ED. mr 11:50 Meek Anthony, [facility]5 11:50 Vince Bain MD is Attending Physician. dr5 12:08 Triage completed. me1 12:08 Arm band placed on Patient placed in waiting room. me1 12:23 Patient has correct armband on for positive identification. Provided Education on: POC. me1 Verbalized understanding.. 12:23 No provider procedures requiring assistance completed. Patient did not have IV access me1 during this emergency room visit. Administered Medications: 12:22 Drug: Fluconazole PO 150 mg PO once Route: PO; me1 12:22 Follow up: Response: No adverse reaction me1 Medication: 12:23 VIS not applicable for this client. me1 Outcome: 12:18 Discharge ordered by . dr5 12:25 Discharged to home ambulatory, me1 12:25 Condition: stable 12:25 Discharge instructions given to patient, Instructed on discharge instructions, follow up and referral plans. medication usage, Demonstrated understanding of instructions, follow-up care, medications, Prescriptions given X 1, 12:25 Patient left the ED. me1 Signatures: Kelsey Moreno, Reg Reg mr Quyen Hu, RN RN me1 Meek Anthony, REGISTERED LAND SURVEYOR-C REGISTERED LAND SURVEYOR-Cdr5 Corrections: (The following items were deleted from the chart) 12:10 12:08 PSHx: Stented artery; me1 me1
[2025-05-15 18:34] VITALS: BP 137/71; TEMP 98.3; O2SAT 98
== END 2025-05-15 12:25 | disposition home or self-care (01) ==
LOC: ER 11:38
DX: B37.89 Other sites of candidiasis (principal)
CPT/HCPCS: 99283